=== PATIENT | female | born 1980 | race Caucasian/White ===

== ENCOUNTER 2018-03-07 06:32 | Outpatient (CLI) | payer OTHER, MEDICAID, SELFPAY | END 2018-03-07 07:28 | PROVIDERS: Family Provider Family Medicine; PCP Family Medicine; Visit Provider Family Medicine | DX: Z34.83 Encounter for supervision of other normal pregnancy, third trimester (principal); Z3A.39 39 weeks gestation of pregnancy | CPT/HCPCS: 59025; G0378 ==

== ENCOUNTER 2018-03-08 | Inpatient (IN) | payer OTHER, MEDICAID, SELFPAY | END 2018-03-09 13:30 | disposition home or self-care (01) | DRG 775 | PROVIDERS: Admitting Provider Family Medicine; Family Provider Family Medicine; PCP Family Medicine; Visit Provider Family Medicine | DX: O12.14 Gestational proteinuria, complicating childbirth (principal); N28.9 Disorder of kidney and ureter, unspecified; Z37.0 Single live birth; Z3A.39 39 weeks gestation of pregnancy; O77.0 Labor and delivery complicated by meconium in amniotic fluid | CPT/HCPCS: 36415; 59025; 59050; 80048; 81001; 85014; 85018; 85025; 99058; G0378 ==

== ENCOUNTER 2019-12-20 12:26 | Emergency (ER) | payer OTHER, SELFPAY ==
[2019-12-20 12:46] VITALS: BP 130/86; PULSE 77; RESP 14; TEMP 36.4; O2SAT 100
--- NOTE | 2019-12-20 12:50 | DI.RAD.S_ITS ---
PROCEDURE: XR FINGER RT MIN 2V INDICATIONS: crushed in door TECHNIQUE: AP hand, 2 views of the 3rd finger(s) acquired. COMPARISON: None. FINDINGS: Bones: No fractures or dislocations. No suspicious bony lesions. Soft tissues: No suspicious soft tissue calcifications. IMPRESSION: No displaced fractures are seen on these plain films. If there is focal tenderness, or other clinical concern for a fracture not seen on these images in this patient with a given history of trauma, please consider a dedicated CT or a short-term followup plain film series (in 1-2 weeks) for further evaluation. Dictated by: John Lopez M.D. on 12/20/2019 at 13:17 Approved by: John Lopez M.D. on 12/20/2019 at 13:17
[2019-12-20 14:38] VITALS: PULSE 68
[2019-12-20 14:41] VITALS: BP 123/70; PULSE 68; RESP 18; O2SAT 99
--- NOTE | 2019-12-20 15:04 | ED_ITS ---
HPI - Extremity Injury (Upper) <DONALDO Al - Last Filed: 12/20/19 15:15> General Chief Complaint: Extremity Injury, Upper Stated Complaint: Right hand middle finger laceration Time Seen by Provider: 12/20/19 14:32 Source: patient Mode of arrival: Ambulatory Limitations: no limitations History of Present Illness HPI narrative: This is a 39-year-old female, nonsmoker, who presents after her right distal finger got caught on a garage door and mashed at noon. Patient reports intact sensation and mobility. Patient reports discomfort, laceration, and light bruise on affected finger ulna aspect. Patient states had valdes 22 months ago and she thinks her tetanus vaccination was given at that time. Related Data Home Medications Medication Instructions Recorded Confirmed vit-iron fum-folic ac 1 cap PO QDAY #0 06/07/17 [Mynatal] Previous Rx's Medication Instructions Recorded docusate sodium 250 mg PO QDAY #30 cap 03/09/18 ibuprofen 600 mg PO Q6HP PRN #60 tab 03/09/18 oxycodone-acetaminophen 0 tab PO Q4HP PRN #20 tab 03/09/18 Allergies Allergy/AdvReac Type Severity Reaction Status Date / Time benzoyl peroxide AdvReac Unknown RASH/BUMPS Unverified 02/23/18 12:15 [BENZOYL PEROXIDE] Review of Systems <DONALDO Al - Last Filed: 12/20/19 15:15> Review of Systems Narrative: General: Denies fever, chills, fatigue, malaise, sweats. Respiratory: Denies dyspnea, cough, wheezing, hemoptysis, sputum. Cardiovascular: Denies chest pain, palpitations, orthopnea, edema. Gastrointestinal: Denies nausea, vomiting, abdominal pain, diarrhea, constipation, melena. : Denies dysuria, frequency, incontinence, hematuria, urinary retention. Musculoskeletal: See HPI Skin: See HPI Patient History <DONALDO Al - Last Filed: 12/20/19 15:15> Social History Smoking Status: Never smoker Smoking Status: Never smoker alcohol intake frequency: holidays/special occasions only Substance Use Type: does not use Exam <DONALDO Al - Last Filed: 12/20/19 15:15> Narrative Exam Narrative: General appearance: well developed, well nourished, in no acute distress. Head: normocephalic, atraumatic, no scalp lesions, non-tender. Neck/Thyroid: neck supple, full range of motion, no visible masses or meningeal signs. No JVD, non-tender without lymphadenopathy. Skin: Small superficial laceration on ulna aspect of right 3rd distal phalange as flap shape. no suspicious rashes, lesions over visible areas. Warm and dry and appropriate color for ethnicity. Heart: no clubbing, no cyanosis, no edema. Lungs: Breathing even and unlabored. No stridor. No accessory muscles used. Able to speak in full sentences. Chest: normal shape and expansion. Abdomen: non-obese, non-distended. Neurologic: alert and oriented. Cognitive exam, WEL[employer] GAS and PNS grossly intact on informal exam. Psych: good eye contact, normal affect. Initial Vital Signs Initial Vital Signs: Vital Signs Temperature 97.6 F 12/20/19 12:46 Pulse Rate 77 12/20/19 12:46 Respiratory Rate 14 12/20/19 12:46 Blood Pressure 130/86 12/20/19 12:46 Pulse Oximetry 100 12/20/19 12:46 <Alondra Kaur DO - Last Filed: 12/20/19 18:30> Initial Vital Signs Initial Vital Signs: Vital Signs Temperature 97.6 F 12/20/19 12:46 Pulse Rate 77 12/20/19 12:46 Respiratory Rate 14 12/20/19 12:46 Blood Pressure 130/86 12/20/19 12:46 Pulse Oximetry 100 12/20/19 12:46 Procedures <KULWINDER AlP - Last Filed: 12/20/19 15:15> Laceration Repair Laceration 1: Site: upper extremity (3rd distal finger) Side (If applicable): right Description: flap Skin layer closed with: steri-strips Scores <KULWINDER AlP - Last Filed: 12/20/19 15:15> GCS [place] coma scale eye opening: Spontaneous [place] coma scale verbal response: Orientated [place] coma scale motor response: Obey commands [place] coma scale total score: 15 Course <DONALDO Al - Last Filed: 12/20/19 15:15> Orders Ordered: ED Orders 12/20/19 12:50 XR finger RT min 2V Stat Discontinued Medications Bacitracin (Bacitracin) 1 applic TOP NOW ONE Stop: 12/20/19 15:11 Last Admin: 12/20/19 15:19 Dose: 1 applic Documented by: HINA Vital Signs Vital signs: Vital Signs - 8 hr 12/20/19 12:46 12/20/19 14:38 12/20/19 14:41 Temperature 97.6 F Pulse Rate 77 68 Pulse Rate [Right Radial] 68 Respiratory Rate 14 18 Blood Pressure 130/86 Blood Pressure [Left Arm] 123/70 Pulse Oximetry 100 99 12/20/19 15:28 Temperature Pulse Rate 70 Pulse Rate [Right Radial] Respiratory Rate 16 Blood Pressure 122/72 Blood Pressure [Left Arm] Pulse Oximetry 96 <Alondra Kaur DO - Last Filed: 12/20/19 18:30> Orders Ordered: ED Orders 12/20/19 12:50 XR finger RT min 2V Stat Discontinued Medications Bacitracin (Bacitracin) 1 applic TOP NOW ONE Stop: 12/20/19 15:11 Last Admin: 12/20/19 15:19 Dose: 1 applic Documented by: HINA Vital Signs Vital signs: Vital Signs - 8 hr 12/20/19 12:46 12/20/19 14:38 12/20/19 14:41 Temperature 97.6 F Pulse Rate 77 68 Pulse Rate [Right Radial] 68 Respiratory Rate 14 18 Blood Pressure 130/86 Blood Pressure [Left Arm] 123/70 Pulse Oximetry 100 99 12/20/19 15:28 Temperature Pulse Rate 70 Pulse Rate [Right Radial] Respiratory Rate 16 Blood Pressure 122/72 Blood Pressure [Left Arm] Pulse Oximetry 96 MDM - Extremity Injury (Upper) <DONALDO Al - Last Filed: 12/20/19 15:15> Differential Diagnosis Differential diagnosis: Likely finger sprain and other (finger fracture, laceration) Medical Records Attestation: I reviewed the patient's medical records. Imaging Data XR-Finger RT: Radiologist's Impression: [address] [address] XRay Report Signed Patient: Yessy Gray LMR#: [id number] : 1980Acct:[id number] Age/Sex: 39 / FDate of Service: 12/20/19 Loc: ED Accession Number: [id number] Procedure: XR finger RT min 2V Ordering Provider: Alondra Kaur D.O. PROCEDURE: XR FINGER RT MIN 2V INDICATIONS: crushed in door TECHNIQUE: AP hand, 2 views of the 3rd finger(s) acquired. COMPARISON: None. FINDINGS: Bones: No fractures or dislocations. No suspicious bony lesions. Soft tissues: No suspicious soft tissue calcifications. IMPRESSION: No displaced fractures are seen on these plain films. If there is focal tenderness, or other clinical concern for a fracture not seen on these images in this patient with a given history of trauma, please consider a dedicated CT or a short-term followup plain film series (in 1-2 weeks) for further evaluation. Dictated by: John Lopez M.D. on 12/20/2019 at 13:17 Approved by: John Lopez M.D. on 12/20/2019 at 13:17 [facility] Narrative Medical decision making narrative: X-ray test on right 3rd finger was negative for fracture or dislocation. Tetanus updated during last last and 2 years ago. Laceration on ulna aspect of right 3rd distal phalange is a flap shape and superficial. Wound was cleaned and repaired with Steri-Strips. Please see procedural note. Wound care instruction provided for home care. Return precautions were discussed including signs and symptoms for infection. Patient advised to ice, [id number] Tylenol and or Motrin as needed for discomfort. Patient verbalized understanding and agrees with the treatment plan. Discharge Plan Departure Patient Disposition: Home Clinical Impression: Contusion of finger, right Qualifiers: Encounter type: initial encounter Finger: middle finger Damage to nail status: without damage Qualified Code(s): S60.031A - Contusion of right middle finger without damage to nail, initial encounter Laceration of finger of left hand Qualifiers: Encounter type: initial encounter Finger: middle finger Damage to nail status: without damage Foreign body presence: without foreign body Qualified Code(s): S61.213A - Laceration without foreign body of left middle finger without damage to nail, initial encounter Discharge Date/Time: 12/20/19 15:29 Instructions: DI for Laceration Repair Steri-Strips, DI for Contusion Activity Restrictions/Additional Instructions: You have been diagnosed with [right 3rd distal finger contusion and laceration. No fractures or dislocations according to today's x-ray test. The superficial laceration was repaired by Steri-Strips.]. What to do: *Take your medications as directed. You can take Tylenol and or Motrin as needed for discomfort. You can use very small amount of antibiotic ointment on affected laceration. Keep the wound clean, dry and avoid soaking in the water until it heals. You can use ice pack as well for discomfort and inflammation. *Follow up with your primary care provider in 2-3 days, call for an appointment. Let them know you were seen in the ED and that we asked you to be seen in follow up. *Return to ED if you have any new, worsening, or concerning symptoms, such as [signs and symptoms for infection such as redness/swelling/pain increasing, purulent discharge, chest pain, breathing difficulty, unable to tolerate fluids or any acute concerns,]. Prescriptions: No Action vit-iron fum-folic ac [Mynatal] 1 EACH capsule 1 cap PO QDAY Qty: 0 RF: 0 docusate sodium 250 MG capsule 250 mg PO QDAY Qty: 30 RF: 1 oxycodone-acetaminophen 5 MG/325 MG tablet 0 tab PO Q4HP PRNQty: 20 RF: 0 ibuprofen 600 MG tablet 600 mg PO Q6HP PRNQty: 60 RF: 1 Referrals: Indu Bernardo MD [Primary Care Provider] -
[2019-12-20] MEDS: BACITRACIN OINT 0.9 GM PCKT 1 APPLIC TOP (15:19)
[2019-12-20 15:28] VITALS: BP 122/72; PULSE 70; RESP 16; O2SAT 96
== END 2019-12-20 15:29 | disposition home or self-care (01) ==
PROVIDERS: Emergency Provider Nurse Practitioner Family; Family Provider Family Medicine; PCP Family Medicine
DX: S60.031A Contusion of right middle finger without damage to nail, initial encounter (principal); S61.213A Laceration without foreign body of left middle finger without damage to nail, initial encounter; W22.8XXA Striking against or struck by other objects, initial encounter
CPT/HCPCS: 73140; 99283

== ENCOUNTER → 2021-06-06 14:41 | Outpatient (CLI) | payer OTHER, SELFPAY ==
--- NOTE | 2021-06-06 14:45 | DI.MG.S_ITS ---
BILATERAL DIGITAL SCREENING MAMMOGRAM 3D/2D WITH CAD: 06/06/2021 CLINICAL: Routine screening. Baseline exam. No prior exams were available for comparison. The tissue of both breasts is heterogeneously dense. This may lower the sensitivity of mammography. Current study was also evaluated with a Computer Aided Detection (CAD) system. There are grouped fine punctate calcifications in the right breast at 11 o'clock posterior depth. There are grouped fine punctate calcifications in the left breast at 1 o'clock middle depth. No other significant masses or calcifications are seen in either breast. IMPRESSION: INCOMPLETE: NEEDS ADDITIONAL IMAGING EVALUATION The grouped fine punctate calcifications in the right breast at 11 o'clock posterior depth are indeterminate. The grouped fine punctate calcifications in the left breast at 1 o'clock middle depth are indeterminate. Diagnostic mammogram for additional views to include mediolateral and spot magnification views is recommended. This exam was interpreted at Station ID: [id number]. NOTE: For mammograms, a report in lay terms will be sent to the patient. Approximately 15% of breast malignancies will not be visualized mammographically. In the management of a palpable breast mass, a negative mammogram must not discourage biopsy of a clinically suspicious lesion. Electronically Signed By: Bob Heredia M.D. aty/:06/06/2021 16:43:55 letter sent: Additional Imaging Needed ACR BI-RADS Category 0: Incomplete 3340F
== END ==
PROVIDERS: Family Provider Family Medicine; PCP Family Medicine; Referring Provider Family Medicine; Visit Provider Family Medicine
DX: Z12.31 Encounter for screening mammogram for malignant neoplasm of breast (principal); R92.1 Mammographic calcification found on diagnostic imaging of breast
CPT/HCPCS: 77063; 77067

== ENCOUNTER → 2021-07-31 15:28 | Outpatient (CLI) | payer OTHER, SELFPAY ==
--- NOTE | 2021-07-31 15:30 | DI.MRI.S_ITS ---
PROCEDURE: MR ABDOMEN WO/W CON INDICATIONS: BENIGN SCHWANNOMA TECHNIQUE: Coronal HASTE, axial 2D FLASH in- and [id number]; axial breath-hold T2 FSE. Dynamic axial VIBE during the administration of contrast; post-contrast coronal VIBE or 2D FLASH with fat saturation from the hepatic dome to the iliac crests. Optional diffusion weighted imaging and ADC may be performed. COMPARISON: [facility], MR, ABDOMEN W&WO CONTRAST, 05/21/2017, 15:03. FINDINGS: Image quality: Excellent. Lung bases: No basal pleural effusions. Heart size is normal. Solid organs: Liver is normal in size and enhancement. Gallbladder appears decompressed. Biliary system is non dilated. Pancreas is normal in morphology. Spleen is normal in size and enhancement. No adrenal nodules. Both kidneys demonstrate normal size and enhancement, without hydronephrosis. Nodes and vessels: No retroperitoneal or mesenteric adenopathy by size criteria. Susceptibility artifact to the right of the inferior IVC at the site of prior mass. There is no recurrent mass. No suspicious enhancement. No restricted diffusion. Aorta and inferior vena cava are normal in size. Bowel and peritoneum: Unenhanced bowel loops are normal in caliber. No free fluid. Bones and soft tissues: No ventral hernias. Ventral abdominal wall scar. Bone marrow is normal in overall signal. IMPRESSION: No recurrent mass to the right of the lower IVC at the site of previous mass. No suspicious enhancement or restricted diffusion. Dictated by: Sam Mercado M.D. on 07/31/2021 at 16:59 Approved by: Sam Mercado M.D. on 07/31/2021 at 17:08
== END ==
PROVIDERS: Family Provider Family Medicine; PCP Family Medicine; Referring Provider Surgery Surgical Oncology; Visit Provider Surgery Surgical Oncology
DX: D36.10 Benign neoplasm of peripheral nerves and autonomic nervous system, unspecified (principal)
CPT/HCPCS: 74183; A9579

== ENCOUNTER 2022-04-06 09:33 | Emergency (ER) | payer OTHER, SELFPAY ==
[2022-04-06 09:52] VITALS: BP 113/76; PULSE 92; RESP 18; TEMP 36.7; O2SAT 98; BMI 27.4
--- NOTE | 2022-04-06 09:56 | DI.RAD.S_ITS ---
PROCEDURE: XR CHEST 2V INDICATIONS: cough for 2 weeks TECHNIQUE: 2 views of the chest were acquired. COMPARISON: None. FINDINGS: Surgical changes and devices: None. Lungs and pleura: Lungs are clear. No pleural effusions or pneumothorax. Mediastinum: Mediastinal contours are normal. Heart size is normal. Bones and chest wall: No suspicious bony abnormalities. Soft tissues appear unremarkable. IMPRESSION: No focal infiltrates are seen. Dictated by: John Lopez M.D. on 04/06/2022 at 9:28 Approved by: John Lopez M.D. on 04/06/2022 at 9:28
[2022-04-06 11:56] LABS: COVID19 -Nasal RAPID Negative (Negative)
--- NOTE | 2022-04-06 13:09 | ED_ITS ---
HPI - URI/Sore Throat <Nicki Will PA-C - Last Filed: 04/06/22 13:15> General Chief Complaint: Upper Respiratory Symptoms Stated Complaint: chest congestion 2 weeks *tight chest/ears today Time Seen by Provider: 04/06/22 12:58 Source: patient Mode of arrival: Ambulatory History of Present Illness HPI Narrative: 41-year-old female with no reported past medical history presents to the ED with 3 weeks of cough, fatigue, chills. Patient denies fever, chest pain, shortness of breath, nausea, vomiting, abdominal pain, diarrhea, constipation, dysuria. Patient's tested positive for COVID 3 days ago. Patient has taken several COVID-19 home tests over the last 3 weeks, which were all negative. Related Data Home Medications Medication Instructions Recorded Confirmed vitamin-ferrous fumarate 1 cap PO QDAY #0 06/07/17 65 mg iron-folic acid 1 mg capsule (Mynatal) Previous Rx's Medication Instructions Recorded docusate sodium 250 mg capsule 250 mg PO QDAY #30 cap 03/09/18 ibuprofen 600 mg tablet 600 mg PO Q6HP PRN #60 tab 03/09/18 oxycodone-acetaminophen 5 mg-325 0 tab PO Q4HP PRN #20 tab 03/09/18 mg tablet Allergies Allergy/AdvReac Type Severity Reaction Status Date / Time benzoyl peroxide AdvReac Unknown RASH/BUMPS Unverified 02/23/18 12:15 [BENZOYL PEROXIDE] Review of Systems <Nicki Will PA-C - Last Filed: 04/06/22 13:15> Review of Systems ROS Unobtainable: All systems reviewed & are unremarkable except as noted in HPI and below Constitutional Constitutional: Reports chills, Reports fatigue, Denies fever(s), Denies frequent falls, Denies lethargy and Denies weakness Eyes Eyes: Denies change in vision, Denies eye discharge, Denies irritation and Denies loss of vision ENT Ears, Nose, Mouth, and Throat: Denies change in voice, Denies dizziness, Reports otalgia, Denies neck pain, Denies sore throat and Denies throat swelling Cardiovascular Cardiovascular: Denies chest pain, Denies irregular heart rhythm, Denies li ghtheadedness, Denies palpitations, Denies dyspnea, Denies dyspnea on exertion and Denies orthopnea Respiratory Respiratory: Reports cough, Denies dyspnea, Denies dyspnea on exertion and Denies wheezing Gastrointestinal Gastrointestinal: Denies abdominal pain, Denies change in bowel habits, Denies diarrhea, Denies nausea and Denies vomiting Genitourinary Genitourinary: Denies hematuria, Denies flank pain, Denies urinary incontinence and Denies urinary urgency Musculoskeletal Musculoskeletal: Denies back pain, Denies muscle weakness, Denies neck pain, Denies numbness and Denies tingling Integumentary/Breasts Skin/Breast: Denies pruritus, Denies erythema, Denies rash and Denies wounds Neurologic Neurologic: Denies behavioral changes, Denies confusion, Denies dizziness, Denies frequent falls, Denies loss of vision, Denies numbness, Denies tingling and Denies weakness Psychiatric Psychiatric: Denies anxiety, Denies behavioral changes, Denies confusion, Denies depression, Denies homicidal ideation and Denies suicidal ideation Endocrine Endocrine: Reports fatigue, Denies flushing and Denies palpitations Hematologic/Lymphatic Hematologic/Lymphatic: Denies easy bruising Allergic/Immunologic Allergic/Immunologic: Denies urticaria, Denies throat swelling and Denies wheezing Patient History <Nicki Will PA-C - Last Filed: 04/06/22 13:15> Social History Smoking Status: Never smoker Smoking Status: Never smoker alcohol intake frequency: holidays/special occasions only Substance Use Type: does not use Exam <Nicki Will PA-C - Last Filed: 04/06/22 13:15> Narrative Exam Narrative: Const General:?cooperative, healthy appearing and comfortable [facility] Head:?normal to inspection Ears:?hearing grossly normal bilaterally Nose:?external nose normal Face and sinus:?normal facial exam and sinuses nontender Mouth:?oral mucosae normal Throat:?posterior oropharynx normal Eyes General:?appearance normal, both eyes and all related structures Neck Neck:?normal visual inspection and no lymphadenopathy noted Resp Effort & Inspection:?normal respiratory effort Auscultation:?clear to auscultation bilaterally Cardio Rate:?regular rate Rhythm:?regular rhythm Neuro General:?patient alert, patient awake and patient oriented x3 Initial Vital Signs Initial Vital Signs: Vital Signs Temperature 98.0 F 04/06/22 09:52 Pulse Rate 92 H 04/06/22 09:52 Respiratory Rate 18 04/06/22 09:52 Blood Pressure 113/76 04/06/22 09:52 Pulse Oximetry 98 04/06/22 09:52 <Alexandra Singh MD - Last Filed: 04/07/22 07:23> Initial Vital Signs Initial Vital Signs: Vital Signs Temperature 98.0 F 04/06/22 09:52 Pulse Rate 92 H 04/06/22 09:52 Respiratory Rate 18 04/06/22 09:52 Blood Pressure 113/76 04/06/22 09:52 Pulse Oximetry 98 04/06/22 09:52 Course <Nicki Will PA-C - Last Filed: 04/06/22 13:15> Orders Ordered: ED Orders 04/06/22 09:56 XR chest 2V Stat 04/06/22 11:24 COVID19 -Nasal RAPID/Pre-Proc Stat Vital Signs Vital signs: Vital Signs - 8 hr 04/06/22 09:52 Temperature 98.0 F Pulse Rate 92 H Respiratory Rate 18 Blood Pressure 113/76 Pulse Oximetry 98 <Alexandra Singh MD - Last Filed: 04/07/22 07:23> Orders Ordered: ED Orders 04/06/22 09:56 XR chest 2V Stat 04/06/22 11:24 COVID19 -Nasal RAPID/Pre-Proc Stat Vital Signs Vital signs: Vital Signs - 8 hr 04/06/22 09:52 Temperature 98.0 F Pulse Rate 92 H Respiratory Rate 18 Blood Pressure 113/76 Pulse Oximetry 98 MDM - URI/Sore Throat <Nicki Will PA-C - Last Filed: 04/06/22 13:15> Lab Data Attestation: I reviewed the patient's lab results. Lab results narrative: COVID 19 negative Labs: Lab Results 04/06/22 Range/Units 11:24 SARS-CoV-2 (PCR) Negative (Negative) Imaging Data Chest x-ray: Radiologist's Impression: PROCEDURE:? XR CHEST 2V ? INDICATIONS:? cough for 2 weeks ? TECHNIQUE:? 2 views of the chest were acquired.? ? COMPARISON:? None. ? FINDINGS:? ? Surgical changes and devices:? None.? ? Lungs and pleura:? Lungs are clear.? No pleural effusions or pneumothorax.? ? Mediastinum:? Mediastinal contours are normal.? Heart size is normal.? ? Bones and chest wall:? No suspicious bony abnormalities.? Soft tissues appear unremarkable.? IMPRESSION:? No focal infiltrates are seen. ? ? Dictated by: John Lopez M.D. on 04/06/2022 at 9:28 ? ? Approved by: John Lopez M.D. on 04/06/2022 at 9:28 ? MDM Narrative Medical decision making narrative: 41-year-old female with no reported past medical history presents to the ED with 3 weeks of cough, fatigue, chills. Concern for COVID-19 infection versus pneumonia versus other viral syndrome. Patient's COVID-19 test was negative in the ED. Chest x-ray without any acute findings. Patient's symptoms are likely due to an upper respiratory infection, given no signs of bacterial infection such as strep pharyngitis, pneumonia, otitis media, bacterial sinusitis. Discharge patient home with supportive care, ED return precautions. Patient verbalized understanding. <Alexandra Singh MD - Last Filed: 04/07/22 07:23> Lab Data Labs: Lab Results 04/06/22 Range/Units 11:24 SARS-CoV-2 (PCR) Negative (Negative) Discharge Plan Departure Patient Disposition: Home Clinical Impression: Upper respiratory infection Instructions: DI for Viral Upper Respiratory Infection -- Adult Activity Restrictions/Additional Instructions: You were evaluated in the ED today for an upper respiratory infection. Your COVID test was negative and chest x-ray was normal. Your symptoms are likely due to a viral upper respiratory infection. You may take Tylenol, ibuprofen, Flonase, [id number] cough medications for your symptoms. Return to the ED if you experience any chest pain or shortness of breath. Prescriptions: No Action vit-iron fum-folic ac [Mynatal] 1 EACH capsule 1 cap PO QDAY Qty: 0 0RF docusate sodium 250 MG capsule 250 mg PO QDAY Qty: 30 1RF oxycodone-acetaminophen 5 MG/325 MG tablet 0 tab PO Q4HP PRNQty: 20 0RF ibuprofen 600 MG tablet 600 mg PO Q6HP PRNQty: 60 1RF Referrals: Indu Bernardo MD [Primary Care Provider] - <Alexandra Singh MD - Last Filed: 04/07/22 07:23> Cosign ED Attending Cosignature Attestation: I was immediately available in the department for consultation throughout this patient's visit. I agree with documentation as above. Alexandra Singh MD
[2022-04-06 13:17] VITALS: BP 111/62; PULSE 96; RESP 20; O2SAT 100
== END 2022-04-06 13:18 | disposition home or self-care (01) ==
PROVIDERS: Emergency Medicine; Emergency Provider Student in an Organized Health Care Education/Training Program; Family Provider Family Medicine; PCP Family Medicine
DX: J06.9 Acute upper respiratory infection, unspecified (principal); Z20.822 Contact with and (suspected) exposure to COVID-19
CPT/HCPCS: 71046; 87635; 99281; 99283; C9803

== ENCOUNTER → 2022-09-24 09:25 | Outpatient (CLI) | payer OTHER, SELFPAY ==
--- NOTE | 2022-09-24 09:27 | DI.MG.S_ITS ---
BILATERAL DIGITAL DIAGNOSTIC MAMMOGRAM 3D/2D SHORT-TERM FOLLOW-UP: 09/24/2022 CLINICAL: Short term follow up for bilateral breasts. Comparison is made to exam dated: 06/06/2021 mammogram - [facility]. Both breasts are heterogeneously dense, which may obscure small masses (category c / 51-75% glandular tissue). There are diffuse fine punctate calcifications in the right breast at 11 o'clock posterior depth. There are grouped fine punctate calcifications in the left breast at 1 o'clock middle depth. There may be an underlying oval partially obscured, low density asymmetry measuring 1.0 cm seen best on MLO susan and magnification views. No other significant masses or calcifications are seen in either breast. IMPRESSION: INCOMPLETE: NEEDS ADDITIONAL IMAGING EVALUATION The diffuse fine punctate calcifications in the right breast at 11 o'clock posterior depth are probably benign. Follow up mammogram in 6 months is recommended. The grouped fine punctate calcifications in the left breast at 1 o'clock middle depth are possibly associated with an underlying low density asymmetry. An ultrasound is recommended. This could not be accommodated today, and should be scheduled to be performed as soon as possible. Findings and recommendations were conveyed to the patient at time of exam. Based on the Tyrer Cuzick model (a risk assessment model) the patient's lifetime risk is 14.9% and her 10 year risk is 2.4%. According to the ACR, ACS, and NCCN guidelines, an annual breast MRI exam along with mammogram is recommended if the patient's lifetime risk is 20% or greater. This exam was interpreted at Station ID: [id number]. NOTE: For mammograms, a report in lay terms will be sent to the patient. Approximately 15% of breast malignancies will not be visualized mammographically. In the management of a palpable breast mass, a negative mammogram must not discourage biopsy of a clinically suspicious lesion. Electronically Signed By: Yaneli winslow/:09/24/2022 12:03:09 letter sent: Additional Imaging Needed ACR BI-RADS Category 0: Incomplete 3340F
--- NOTE | 2022-10-26 | DI.US.S_ITS ---
LIMITED ULTRASOUND OF LEFT BREAST: 10/26/2022 CLINICAL: Patient returns today to evaluate an asymmetry in the left breast. Comparison is made to exams dated: 09/24/2022 mammogram, 06/06/2021 mammogram, and 02/22/2012 [facility]. Real-time ultrasound of the left breast 1 o'clock region was performed. Weldon scale images of the real-time examination were reviewed. No significant abnormalities were seen sonographically in the left breast in the region of possible asymmetry. IMPRESSION: PROBABLY BENIGN No sonographic evidence of malignancy. A follow-up mammogram in 6 months is recommended to demonstrate stability of the previously seen calcifications. 03/24/2023 Exam findings were conveyed to the patient. This exam was interpreted at Station ID: [id number]. Electronically Signed By: Sam Mercado M.D. slc/:10/26/2022 13:17:26 letter sent: Followup Recommended Ultrasound BI-RADS: 3 Probably benign
== END ==
PROVIDERS: Family Provider Family Medicine; PCP Family Medicine; Referring Provider Family Medicine; Visit Provider Family Medicine
DX: R92.8 Other abnormal and inconclusive findings on diagnostic imaging of breast (principal); R92.1 Mammographic calcification found on diagnostic imaging of breast
CPT/HCPCS: 77066; G0279

== ENCOUNTER → 2022-10-26 12:41 | Outpatient (CLI) | payer OTHER, SELFPAY | PROVIDERS: Family Provider Family Medicine; PCP Family Medicine; Referring Provider Family Medicine; Visit Provider Family Medicine | DX: R92.8 Other abnormal and inconclusive findings on diagnostic imaging of breast (principal) | CPT/HCPCS: 76642 ==

== ENCOUNTER → 2023-06-19 08:17 | Outpatient (CLI) | payer OTHER, SELFPAY ==
[2023-06-19 09:20] LABS: Add Manual Diff / Slide Review NO; Basophils Absolute Auto 0 /uL (0-100); Eosinophils Absolute Auto 200 /uL (0-450); Eosinophils Percent Auto 3.3 % (2-4); Hematocrit 37.6 % (36-46); Hemoglobin 12.9 g/dL (12.0-16.0); Lymphocytes Absolute Auto 1500 /uL (1100-4500); Lymphocytes Percent Auto 31.3 % (25-40); Mean Corpuscular HGB Conc 34.4 % (30-36); Mean Corpuscular Hemoglobin 30.6 PG (26-34); Monocytes Absolute Auto 300 /uL (0-900); Monocytes Percent Auto 6.8 % (3-14); Neutrophils Absolute Auto 2700 /uL (1500-7000); Neutrophils Percent Auto 57.6 % (50-75); Platelet Count 258 X10^3/uL (150-400); Red Blood Cell Count 4.22 X10^6/uL (4.0-5.2); Red Cell Distribution Width 12.2 % (11.6-14.8); White Blood Cell Count 4.7 X10^3/uL (4.5-11.0)
[2023-06-19 09:42] LABS: Alanine Aminotransferase 21 IU/L (<35); Albumin 4.1 g/dL (3.5-5.0); Albumin Globulin Ratio 1.5 (1.0-2.8); Alkaline Phosphatase 54 U/L (38-126); Aspartate Aminotransferase 23 IU/L (14-36); BUN Creatinine Ratio 15.2 (6-22); Bilirubin Total 0.6 mg/dL (0.2-1.3); Blood Urea Nitrogen 10 mg/dL (7-17); Calcium 9.3 mg/dL (8.4-10.2); Carbon Dioxide 26 mmol/L (22-32); Chloride 103 mmol/L (98-107); Cholesterol 192 mg/dL (140-199); Estimated Glomerular Filt Rate > 60 mL/min (>60); Globulin 2.8 g/dL (1.7-4.1); Glucose 91 mg/dL (70-100); HDL Cholesterol 68 mg/dL (40-60); HEMOLYSIS < 15 (0-50); LDL Cholesterol Calculated 112 mg/dL (<100); Potassium 4.4 mmol/L (3.4-5.1); Sodium 136 mmol/L (137-145); Total Protein 6.9 g/dL (6.3-8.2); Triglycerides 61 mg/dL (35-150)
[2023-06-19 09:58] LABS: Free T3, Triiodothyronine Free 3.34 pg/mL (2.77-5.27); Free T4, Direct Thyroxine 0.92 ng/dL (0.78-2.19)
[2023-06-19 10:11] LABS: Thyroid Stimulating Hormone 1.09 uIU/mL (0.47-4.68)
[2023-06-19 10:15] LABS: Ferritin 17 ng/mL (6-137)
[2023-06-20 07:11] LABS: Thyroid Peroxidase Antibodies 10 IU/mL (0-34)
[2023-06-22 06:09] LABS: Insulin Level Total 4.8 uIU/mL (2.6-24.9)
== END ==
PROVIDERS: Family Provider Family Medicine; PCP Family Medicine; Referring Provider Naturopath; Visit Provider Naturopath
DX: Z00.00 Encounter for general adult medical examination without abnormal findings (principal); E16.2 Hypoglycemia, unspecified; R53.83 Other fatigue
CPT/HCPCS: 36415; 80053; 80061; 82728; 83525; 84439; 84443; 84481; 85025; 86376

== ENCOUNTER → 2023-08-19 15:20 | Outpatient (CLI) | payer OTHER, MEDICAID, SELFPAY ==
--- NOTE | 2023-08-19 | DI.US.S_ITS ---
PROCEDURE: US OB <= 14 WEEKS FETUS INDICATIONS: POSITIVE OUTSIDE/PRIOR DATING DATA: Last menstrual period (LMP): 06/27/2023 LMP-based estimated date of delivery (CATRACHITO): 04/02/2024. First dating scan (date and location): 08/19/2023. Estimated date of delivery (CATRACHITO) from first dating scan: 04/04/2024. TECHNIQUE: Real-time scanning was performed of the fetus and maternal pelvic organs, with image documentation. Endovaginal scanning was also performed to better visualize the fetus and maternal ovaries. COMPARISON: None. FINDINGS: Embryo: [place]-rump length measures 1.1 cm corresponding to 7 weeks 2 days. Heart rate: 145 Maternal organs: Ovaries within normal limits. IMPRESSION: 7 week 2 day single living IUP corresponding to ultrasound CATRACHITO of 04/04/2024. We strive to produce accurate, complete, and clear reports of imaging services. To assist us in improving patient care, this report was composed using standard report templates and voice recognition software. Therefore, it may contain abnormal punctuation, insertions and/or omissions. Occasional wrong-word or sound-alike substitutions may occur. Though we review the report and make efforts to correct it, we do recommend that the report be read carefully in proper context to recognize any text inaccuracies. Dictated by: Edison GODFREY Interpreted: Nazario De Jesus MD on 08/19/2023 at 16:10 Transcribed by: JEB on 08/19/2023 at 16:17 Approved by: Nazario De Jesus M.D. on 09/20/2023 at 7:54
== END ==
PROVIDERS: Family Provider Family Medicine; PCP Family Medicine; Referring Provider Family Medicine; Visit Provider Family Medicine
DX: N91.2 Amenorrhea, unspecified (principal); Z32.01 Encounter for pregnancy test, result positive; Z3A.01 Less than 8 weeks gestation of pregnancy
CPT/HCPCS: 76801; 76817

== ENCOUNTER → 2023-09-13 13:40 | Outpatient (CLI) | payer OTHER, MEDICAID, SELFPAY ==
[2023-09-13 14:29] LABS: Add Manual Diff / Slide Review NO; Basophils Absolute Auto 0 /uL (0-100); Basophils Percent Auto 0.5 % (0-2); Eosinophils Absolute Auto 100 /uL (0-450); Hemoglobin 12.4 g/dL (12.0-16.0); Lymphocytes Absolute Auto 1300 /uL (1100-4500); Mean Corpuscular HGB Conc 34.5 % (30-36); Mean Corpuscular Hemoglobin 30.8 PG (26-34); Mean Corpuscular Volume 89.4 fL (80-100); Monocytes Absolute Auto 400 /uL (0-900); Monocytes Percent Auto 5.1 % (3-14); Neutrophils Absolute Auto 6300 /uL (1500-7000); Neutrophils Percent Auto 77.4 % (50-75); Platelet Count 277 X10^3/uL (150-400); Red Blood Cell Count 4.03 X10^6/uL (4.0-5.2); Red Cell Distribution Width 12.7 % (11.6-14.8); White Blood Cell Count 8.1 X10^3/uL (4.5-11.0)
[2023-09-13 15:23] LABS: Appearance Urine UA CLEAR; Bilirubin Urine UA NEGATIVE (NEGATIVE); Color Urine UA YELLOW; Glucose Urine UA NEGATIVE (Negative); Ketones Urine UA NEGATIVE (NEGATIVE); Leukocyte Esterase Urine UA NEGATIVE (NEGATIVE); Nitrite Urine UA NEGATIVE (Negative); Occult Blood Urine UA NEGATIVE (Negative); Protein Urine UA NEGATIVE (Negative); Specific Gravity Urine UA <=1.005 (1.000-1.035); Urobilinogen Urine UA 0.2 E.U./dL (0.2)
[2023-09-13 15:25] LABS: pH Urine UA 6.5 (4.5-8.0)
[2023-09-13 17:13] LABS: Hepatitis B Surface Antigen NEGATIVE s/c (NEGATIVE); Rubella Antibody IgG 44.3 IU/mL (>15)
[2023-09-13 17:26] LABS: Hep C Virus Ab w/Reflex Quant NEGATIVE s/c (NEGATIVE)
[2023-09-13 17:27] LABS: HIV 1 & 2 Ab/Ag 4th Gen Combo NEGATIVE (NEGATIVE)
[2023-09-14 06:18] LABS: RPR Screen Non Reactive (Non Reactive)
[2023-09-14 11:29] LABS: Varicella IgG Antibody 1569 index (Immune >165)
== END ==
PROVIDERS: Family Provider Family Medicine; PCP Family Medicine; Referring Provider Family Medicine; Visit Provider Family Medicine
DX: O09.521 Supervision of elderly multigravida, first trimester (principal); Z34.80 Encounter for supervision of other normal pregnancy, unspecified trimester
CPT/HCPCS: 36415; 80055; 81003; 86787; 86803; 86850; 86900; 86901; 87086; 87389

== ENCOUNTER → 2023-11-16 10:18 | Outpatient (CLI) | payer OTHER, MEDICAID, SELFPAY ==
--- NOTE | 2023-11-16 10:18 | DI.US.S_ITS ---
PROCEDURE: US OB >= 14 WEEKS FETUS INDICATIONS: anatomy scan OUTSIDE/PRIOR DATING DATA: Last menstrual period (LMP): 06/27/2023 LMP-based estimated date of delivery (CATRACHITO): 04/02/2024 First dating scan (date and location): 08/19/2023 Estimated date of delivery (CATRACHITO) from first dating scan: 04/04/2024 The calculations are made using the clinical CATRACHITO of 04/02/2024 TECHNIQUE: Real-time scanning was performed of the fetus, with image documentation and biometric measurements. Endovaginal scanning: Not performed COMPARISON: [facility], OB <= 14 WEEKS FETUS, 08/19/2023, 15:36. FINDINGS: General: A single living intrauterine gestation is present. Presentation: Vertex Placenta: Placental position is posterior, without previa. Amniotic fluid index: 10.3 cm, normal range is 5-24 cm. Single deepest vertical pocket is 3.1 cm. heart rate: 140 beats per minute. Maternal cervical canal: 4.7 cm long. Normal lower limit is 2.5 cm. biometrics: Biparietal diameter: 4.3 cm, 18 weeks 6 days Head circumference: 17.0 cm, 19 weeks 4 days Abdominal circumference: 14.8 cm, 20 weeks 0 days Femur length: 3.1 cm, 19 weeks 5 days Clinically estimated gestational age: 20 weeks 2 days Composite gestational age from present scan: 19 weeks 4 days Estimated weight and percentile: 314 grams, 21st percentile Anatomic survey: Neuro: Ventricles are non-dilated at less than 10 mm. Cisterna magna is normal at 3-11 mm. Cerebellum is normal in size and morphology. Nuchal skin fold: Normal at less than 6 mm between 14-21 weeks gestational age. Face: Nose and lips, facial profile are normal. Spine: No evidence for spina bifida. Heart: 4-chambered heart is present, with normal ventricular outflow tracts. Diaphragm: Diaphragm is intact. Stomach: Left-sided stomach is present. Kidneys: No hydronephrosis. Normal is less than 5 mm in 2nd trimester, less than 7 mm in 3rd trimester. Cord: 3-vessel cord has orthotopic insertion. Bladder: Normal in size. Extremities: All 4 extremities identified. IMPRESSION: 1. Single live intrauterine with appropriate interval growth. 2. anatomic survey is within normal limits. Approved by: Juice Ortiz M.D. on 11/16/2023 at 15:05
== END ==
PROVIDERS: Family Provider Family Medicine; PCP Family Medicine; Referring Provider Family Medicine; Visit Provider Family Medicine
DX: Z34.82 Encounter for supervision of other normal pregnancy, second trimester (principal); Z3A.19 19 weeks gestation of pregnancy
CPT/HCPCS: 76811

== ENCOUNTER 2023-11-21 19:18 | Outpatient (CLI) | payer OTHER, MEDICAID, SELFPAY ==
--- NOTE | 2023-11-21 19:57 | P.CONS_ITS ---
History of Present Illness Consult details Date Patient Seen: 11/21/23 Time Patient Seen: 19:57 Chief complaint: [place] K[place] pain Reason for consult: Twenty weeks gestational age with abdominal pain. Narrative: Patient states she has had periumbilical cramping pain which occurred twice today. She denies these being cramping in nature. She states these are intermittent with exacerbations. 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 Meds Home Medications and Allergies Home Medications Medication Instructions Recorded Confirmed Type L.acidop,casei,lactis,rham-B.lact,mega cap PO 08/23/23 11/01/23 History 625 mg (10 billion cell) capsule (Advanced Probiotic) vitamin-ferrous sulfate tab PO 08/23/23 11/01/23 History 27 mg iron-folic acid 0.8 mg tablet Allergies Allergy/AdvReac Type Severity Reaction Status Date / Time benzoyl peroxide AdvReac Unknown RASH/BUMPS Unverified 11/01/23 10:59 [BENZOYL PEROXIDE] Exam Const General: healthy appearing and comfortable GI Inspection: incision (Patient has incision above the umbilicus in skirts around the right side of) Palpation: soft and tender (She has minimal tenderness at the incision. There is no tenderness at the ) Auscultation: normal bowel sounds Const General: healthy appearing and comfortable GI Inspection: incision (Patient has incision above the umbilicus in skirts around the right side of) Palpation: soft and tender (She has minimal tenderness at the incision. 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, 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) current occupational exposures/hazards: No [place]wick/roman catholic: Confucianism special [place] needs: No travel history: recent (domestic only) Safety seatbelt use: always helmet use: Yes water heater temp set < 120 deg: Yes working smoke detector in home: Yes fire extinguisher in home: Yes carbon monox detector in home: Yes firearms in home: No do you feel safe at home: Yes Tobacco & Substance Use Smoking Status: Never smoker alcohol intake: former (occasionally when not ) substance use type: does not use Diet and Exercise during the past year weight has: remained stable daily servings fruits/ve-4 caffeine: Yes (2 cups black tea) Type(s) of exercise: walking, bicycling and yoga frequency: 5-6 times per week Assessment & Plan Assessment and plan (1) Abdominal pain complicating : Status: Acute Plan Or pain noted at this time it does not appear to be arrhythmic. It appears to be intermittent in nature. 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 This probably is adhesions from that surgery. This occurred after the of her last child. Bedside ultrasound showed a live child inside the uterus with good cardiac as well as motion. Is posterior in location amniotic fluid is good. Assessment & Plan narrative: We will monitor the patient for contractions if none are seen we will send patient home. Patient has been instructed to try and minimize her activity.
== END 2023-11-21 20:35 | disposition home or self-care (01) ==
LOC: OB 11-22 14:11
PROVIDERS: Family Provider Family Medicine; PCP Family Medicine; Referring Provider Obstetrics & Gynecology; Visit Provider Obstetrics & Gynecology
DX: O26.892 Other specified pregnancy related conditions, second trimester (principal); R10.33 Periumbilical pain; Z3A.21 21 weeks gestation of pregnancy
CPT/HCPCS: 59025; 76815; G0378; G0379

== ENCOUNTER 2023-12-21 09:00 | Outpatient (RCR) | payer OTHER, MEDICAID, SELFPAY ==
--- NOTE | 2023-10-19 16:02 | PT.OIE ---
Current Diagnoses Other chronic pain (10/19/23) Sacrococcygeal disorders, not elsewhere classified (10/19/23) Past Medical History (Last Reviewed 09/13/23 @ 12:48 by Daysi Shen MD) Abdominal tumor Breast abscess renal anomaly LGA (large for gestational age) fetus Long COVID Past Surgical History (Last Reviewed 09/13/23 @ 12:48 by Daysi Shen MD) H/O abdominal surgery History of tonsillectomy (~1982) Visit Care Team Role Provider Type Indu Bernardo MD Family Provider Physician Primary Care Provider Specialty: [facility] Practice Address: [address] [place] [address], [place], [address] Email: [email or web address] Daysi Shen MD Attending Provider Physician Referring Provider Specialty: [facility] Address: [address] [place] [address], [address], [place], [address] Email: [email or web address] Physical Therapy Initial Evaluation PT-OP-A Visit Information Start: 10/19/23 09:47 Freq: Status: Active Protocol: Document 10/19/23 16:02 NM (Rec: 10/19/23 16:34 NM [id number]) Out-Patient Physical Therapy Visit Information Visit Information Visit Type Initial Evaluation Visit Start Time 09:45 Visit Stop Time 10:30 Total Visit Minutes 45 Visit Number 1 Evaluation Information Evaluation Date 10/19/23 Precautions Precautions PT-OP-B Current Condition Start: 10/19/23 09:47 Freq: Status: Active Protocol: Document 10/19/23 16:02 NM (Rec: 10/19/23 16:34 NM [id number]) Current Condition History of Current Condition Onset Date 08/2023 Current Complaints SIJ pain, low back discomfort History of Current Condition Pt presents to clinic with B SIJ pain. She is , and this is her fourth child. She has had PT before for SIJ pain during a different ; however, she states that it was not helpful. Pt reports that she is experiencing tightness in her piriformis in addition to B posterolateral hip pain. She has been rolling out her piriformis muscles with a foam roller. She participates in yoga/pilates normally, but she has not been able to participate recently due to SIJ pain. She has pain with any stance position where her legs are not together under her ROBERTO, bending over, and walking. She has been exercising in a deep pool to help offload her joints, which is reports is helpful overall but not for SIJ pain. Treatment Goals Patient/Caregiver Goals Decrease SIJ pain, feel more stable Prior Functional Status Baseline Function- ADL's Independent Baseline Function- Mobility Independent Baseline Function- Gait Able to walk miles without pain Current Functional Impairments (Reported) Functional Limitations- Mobility/Gait Unable to walk >15 min due to pain PT-OP-C Subjective Start: 10/19/23 09:47 Freq: Status: Active Protocol: Document 10/19/23 16:02 NM (Rec: 10/19/23 16:34 NM [id number]) OP-PT Subjective Patient Comments Patient Comments See hx for pt report Patient Questionnaires Oswestry Low Back Index Oswestry Score 22/50 Oswestry Impairment 20 to 39% Impaired (Score 20- 39) OP-PT Pain Assessment Pain Assessment Grid Paper Pain Assessment Grid Completed Yes Location SI joint Pain Location Details B SIJ, along sacral bases Intensity 3 Scale Used Numeric (0 - 10) Description Pinching,Sharp Frequency Constant Radiating Location radiates to B hips (R>L), B piriformis Pain Aggravating Factors Position,Changing Position, Activity,Exercise,Standing, Walking,Bending Pain Alleviating Factors Heat,Rest Pain Behaviors Pain Behaviors Holding Area PT-OP-D Balance Start: 10/19/23 09:47 Freq: Status: Active Protocol: Document 10/19/23 16:02 NM (Rec: 10/19/23 16:34 NM [id number]) Balance Tests Single Limb Standing Single Limb- Right 28 sec (no pain reported) Single Limb- Left 23 sec (no pain reported) PT-OP-E Functional Tests Start: 10/19/23 09:47 Freq: Status: Active Protocol: Document 10/19/23 16:02 NM (Rec: 10/19/23 16:34 NM [id number]) Functional Tests Squat Test Score 1x Comments L weight shift, painful PT-OP-F Manual Assessment Start: 10/19/23 09:47 Freq: Status: Active Protocol: Document 10/19/23 16:02 NM (Rec: 10/19/23 16:34 NM [id number]) Manual Assessments Soft Tissue Assessment Soft Tissue Mobility Assessment Soft tissue restrictions of piriformis, hip flexors Joint Mobility Assessment Joint Mobility Assessment Limited hip flex, IR bilaterally. SIJ is neutral, no noted elevations or depressions at sacral bases or ILAs. P-A springing (grade III) of 6 points along sacral base, ILAs, joint line are negative, do not provoke symptomatic pain. PT-OP-G Mobility & Gait Start: 10/19/23 09:47 Freq: Status: Active Protocol: Document 10/19/23 16:02 NM (Rec: 10/19/23 16:34 NM [id number]) OP Gait Assessment Gait Deviations General Gait Pattern Antalgic Factors Limiting Gait Function Factors Limiting Gait Function Decreased Activity Tolerance, Limited Range of Motion,Pain PT-OP-H Neuro Start: 10/19/23 09:47 Freq: Status: Active Protocol: Document 10/19/23 16:02 NM (Rec: 10/19/23 16:34 NM [id number]) Sensation Evaluation Gross Sensation Gross Sensation WNL Comments Summary Comments Intact BLE and lumbar spine to light touch sensation PT-OP-J Posture/Palpation/Skin Start: 10/19/23 09:47 Freq: Status: Active Protocol: Document 10/19/23 16:02 NM (Rec: 10/19/23 16:34 NM [id number]) Posture Evaluation Position Standing Evaluation View posterior, lateral Head/C-Spine Posture Neutral Position L-Spine Posture Increased Lordosis Pelvis Posture Anteriorly Tilted Weight Distribution Weight Shifted Anterior Hip Posture (L) Externally Rotated,(R) Externally Rotated Knee Posture (L) Genu Valgus,(R) Genu Valgus Palpation Assessment Location Piriformis Palpation Location bilaterally Palpation Findings Spasm,Tenderness Palpation Details Tender to palpation, limits hip motion. PT-OP-K Range of Motion Start: 10/19/23 09:47 Freq: Status: Active Protocol: Document 10/19/23 16:02 NM (Rec: 10/19/23 16:34 NM [id number]) Lumbar Spine Range of Motion Lumbar Spine Active Percentage Testing Position Standing Flexion 50 Extension 100 Lateral Flexion Left 100 Lateral Flexion Right 50 ROM Limitations Soft Tissue Tightness,Pain Comments Flexion and lateral flexion reproduces R SIJ pain L lateral flex to knee joint line, R lateral flex to mid- thigh Hip Goniometric Range of Motion Hip Left Testing Position supine and sitting Flexion w/Knee Flexed 100 Abduction 30 Internal Rotation 29 External Rotation 15 Right Testing Position supine and sitting Flexion w/Knee Flexed 100 Abduction 30 Internal Rotation 27 External Rotation 27 Comments Painful hip IR Hip ROM Limitations Hip ROM Limitations Soft Tissue Tightness PT-OP-L Special Tests Start: 10/19/23 09:47 Freq: Status: Active Protocol: Document 10/19/23 16:02 NM (Rec: 10/19/23 16:34 NM [id number]) Special Tests Lumbar Spine Special Tests Posterior Gap/Distraction Test Results positive B Comments for SIJ Thigh Thrust Test Results positive R Comments for SIJ Gaenslen's Test Test Results positive B Comments for SIJ Anterior Gap/Distraction Test Results negative B Comments compression/distraction B ASIS (for SIJ) Active Straight Leg Raise Test Results positive Comments painful active SLR, no pain with B ASIS stabilization PT-OP-M Strength Start: 10/19/23 09:47 Freq: Status: Active Protocol: Document 10/19/23 16:02 NM (Rec: 10/19/23 16:34 NM [id number]) Hip Strength Hip Manual Muscle Testing Left Flexion (L2) 4 Good Abduction 4 Good Adduction 5 Normal External Rotation 4 Good Internal Rotation 4 Good Right Flexion (L2) 4- Good- Abduction 4 Good Adduction 5 Normal External Rotation 4- Good- Internal Rotation 4 Good Comments Pain with flex and IR Knee Strength Knee Manual Muscle Testing Left Flexion (S2) 5 Normal Extension (L3) 5 Normal Right Flexion (S2) 4- Good- Extension (L3) 5 Normal Comments Pain with knee flex PT-OP-Q Treatments Start: 10/19/23 09:47 Freq: Status: Active Protocol: Document 10/19/23 16:02 NM (Rec: 10/19/23 16:34 NM [id number]) Self-Care/Home Management Treatment Education Patient Education Pain Management Other Education SI belt placement, usage PT-OP-T Assessment and Plan Start: 10/19/23 09:47 Freq: Status: Active Protocol: Document 10/19/23 16:02 NM (Rec: 10/19/23 16:34 NM [id number]) Physical Therapy Assessment Rehab Potential Rehabilitation Potential Good Evaluation Complexity Number of Personal Factors/Comorbidities 1-2 Number of Body Systems Impaired 1-2 Clinical Presentation at Evaluation Stable Impairments Impairments Functional Activities, Functional Mobility,Gait,Pain, Posture,ROM,Soft Tissue Mobility,Strength,Transfers Other Impairments Body mechanics during bending, lifting Core/trunk stabilization Goals Nine Impairment function, gait Closing Agent Goal (LTG) Pt will be able to walk for at leat 15 min with 2/10 pain or less to demo improved SI joint stability and activity tolerance. LTG Duration 8 weeks Eight Impairment ROM Closing Agent Goal (LTG) Pt will improve L hip ER AROM by at least 10 deg to be comparable to RLE for increased hip ROM for . LTG Duration 8 weeks Seven Impairment ROM Closing Agent Goal (LTG) Pt will improve BLE hip flex ROM to > 100 deg in order to demo decreased hip flexor tightness for improved posture during . LTG Duration 8 weeks Six Impairment strength Short Term Goal (STG) Pt will improve BLE hip strength to at least 4/5 with pain <2/10 for improved stability and activity tolerance for ADLs. STG Duration 4 weeks Chcf Goal (LTG) Pt will improve BLE hip strength to at least 4+/5 with pain of <2/10 for improved stability and activity tolerance for ADLs. LTG Duration 8 weeks Five Impairment HEP Closing Agent Goal (LTG) Pt will be independent with HEP at least 5 days/wk in order to maximize gains made during PT and to promote independence. LTG Duration 8 weeks Four Impairment education, posture Closing Agent Goal (LTG) Pt will be educated on posture to decrease -related lordosis, improve trunk stabilization and to decrease pain during standing/walking for improved QOL. LTG Duration 8 weeks Three Impairment function Closing Agent Goal (LTG) Pt will demonstrate safe lifting mechanics and joint protection strategies while lifting and moving objects, such as a baby carrier, in 3/5 trials. LTG Duration 8 weeks Two Impairment function, core stabilization Closing Agent Goal (LTG) Pt will be able to isolate her core and demo TA activation in at least 3/5 trials during for improved stabilization and body mechanics during ADLs. LTG Duration 8 weeks One Impairment function Impairment Oswestry score 22/50 Short Term Goal (STG) Pt will decrease Oswestry score by at least 6 points in order to demo improved activity tolerance and QOL. STG Duration 4 weeks Closing Agent Goal (LTG) Pt will decrease Oswestry score by at least 12 points (1 MCID) in order to demo improved activity tolerance and QOL. LTG Duration 8 weeks Assessment Summary Assessment Pt presents to clinic with B SI joint pain and B hip pain, likely related to . Her primary complaints are pain, stiffness, difficulty ambulating, and SI joint instability. She demos limitations in B hip flex and L hip ER ROM. She also has limitations in trunk flexion and lateral flexion secondary to SI joint pain. Her hip strength is globally 4/5 with painful flexion and IR. She also demos restrictions in her B piriformis, which is limiting her hip mobility. Pain can be reproduced with active straight leg raise ( improved with stabilization at pelvis) and Laslett clusters. Pt has an SI belt; she was educated today on proper placement and wear times. She demos an anterior pelvic tilt and increased lordosis consistent with posture. Pt would benefit from skilled intervention to promote SI joint stability for improved ADL and activity tolerance, improved QOL, postural and body mechanics training, and mobility and safe exercising during the remainder of her . Physical Therapy Plan Frequency and Duration Frequency of Treatment 1-2x/wk Duration of treatment (weeks) 8 Plan of Care Start Date 10/19/23 Plan of Care End Date 12/21/23 Therapeutic Interventions Therapeutic Interventions Balance Training,Home Exercise Program,Joint Mobilizations, Manual Therapy,Neuromuscular Re-education,Patient/Caregiver Education,Self-Care/Home Management,Soft Tissue Mobilization,Taping, Therapeutic Activities, Therapeutic Exercises Next Visit Focus/Plan Next Note Type Treatment Note Next Visit Plan Gentle SIJ exercises, TA activation; education: posture , stabilization, body mechanics, SI belt review
--- NOTE | 2023-10-20 17:06 | PT.OPPOC ---
Physical, Occupational & Speech Therapy At [facility] Current Diagnoses Other chronic pain (10/19/23) Sacrococcygeal disorders, not elsewhere classified (10/19/23) Visit Care Team Role Provider Type Indu Bernardo MD Family Provider Physician Primary Care Provider Specialty: [facility] Address: [address] [place] [address], [address], [place], [address] Email: [email or web address] Daysi Shen MD Attending Provider Physician Referring Provider Specialty: [facility] Address: [address] [place] [address], [address], [place], [address] Email: [email or web address] Plan Of Care PT-OP-T Assessment and Plan Start: 10/19/23 09:47 Freq: Status: Active Protocol: Document 10/19/23 16:02 NM (Rec: 10/19/23 16:34 NM [id number]) Physical Therapy Assessment Rehab Potential Rehabilitation Potential Good Evaluation Complexity Number of Personal Factors/Comorbidities 1-2 Number of Body Systems Impaired 1-2 Clinical Presentation at Evaluation Stable Impairments Impairments Functional Activities, Functional Mobility,Gait,Pain, Posture,ROM,Soft Tissue Mobility,Strength,Transfers Other Impairments Body mechanics during bending, lifting Core/trunk stabilization Goals Nine Impairment function, gait Fpc Goal (LTG) Pt will be able to walk for at leat 15 min with 2/10 pain or less to demo improved SI joint stability and activity tolerance. LTG Duration 8 weeks Eight Impairment ROM Fpc Goal (LTG) Pt will improve L hip ER AROM by at least 10 deg to be comparable to RLE for increased hip ROM for . LTG Duration 8 weeks Seven Impairment ROM Fpc Goal (LTG) Pt will improve BLE hip flex ROM to > 100 deg in order to demo decreased hip flexor tightness for improved posture during . LTG Duration 8 weeks Six Impairment strength Short Term Goal (STG) Pt will improve BLE hip strength to at least 4/5 with pain <2/10 for improved stability and activity tolerance for ADLs. STG Duration 4 weeks Foil Cutter Goal (LTG) Pt will improve BLE hip strength to at least 4+/5 with pain of <2/10 for improved stability and activity tolerance for ADLs. LTG Duration 8 weeks Five Impairment HEP Foil Cutter Goal (LTG) Pt will be independent with HEP at least 5 days/wk in order to maximize gains made during PT and to promote independence. LTG Duration 8 weeks Four Impairment education, posture Fpc Goal (LTG) Pt will be educated on posture to decrease -related lordosis, improve trunk stabilization and to decrease pain during standing/walking for improved QOL. LTG Duration 8 weeks Three Impairment function Fpc Goal (LTG) Pt will demonstrate safe lifting mechanics and joint protection strategies while lifting and moving objects, such as a baby carrier, in 3/5 trials. LTG Duration 8 weeks Two Impairment function, core stabilization Foil Cutter Goal (LTG) Pt will be able to isolate her core and demo TA activation in at least 3/5 trials during for improved stabilization and body mechanics during ADLs. LTG Duration 8 weeks One Impairment function Impairment Oswestry score 22/50 Short Term Goal (STG) Pt will decrease Oswestry score by at least 6 points in order to demo improved activity tolerance and QOL. STG Duration 4 weeks Foil Cutter Goal (LTG) Pt will decrease Oswestry score by at least 12 points (1 MCID) in order to demo improved activity tolerance and QOL. LTG Duration 8 weeks Assessment Summary Assessment Pt presents to clinic with B SI joint pain and B hip pain, likely related to . Her primary complaints are pain, stiffness, difficulty ambulating, and SI joint instability. She demos limitations in B hip flex and L hip ER ROM. She also has limitations in trunk flexion and lateral flexion secondary to SI joint pain. Her hip strength is globally 4/5 with painful flexion and IR. She also demos restrictions in her B piriformis, which is limiting her hip mobility. Pain can be reproduced with active straight leg raise ( improved with stabilization at pelvis) and Laslett clusters. Pt has an SI belt; she was educated today on proper placement and wear times. She demos an anterior pelvic tilt and increased lordosis consistent with posture. Pt would benefit from skilled intervention to promote SI joint stability for improved ADL and activity tolerance, improved QOL, postural and body mechanics training, and mobility and safe exercising during the remainder of her . Physical Therapy Plan Frequency and Duration Frequency of Treatment 1-2x/wk Duration of treatment (weeks) 8 Plan of Care Start Date 10/19/23 Plan of Care End Date 12/21/23 Therapeutic Interventions Therapeutic Interventions Balance Training,Home Exercise Program,Joint Mobilizations, Manual Therapy,Neuromuscular Re-education,Patient/Caregiver Education,Self-Care/Home Management,Soft Tissue Mobilization,Taping, Therapeutic Activities, Therapeutic Exercises Next Visit Focus/Plan Next Note Type Treatment Note Next Visit Plan Gentle SIJ exercises, TA activation; education: posture , stabilization, body mechanics, SI belt review Plan of Care Dates Plan of Care Start Date 10/19/23 Plan of Care End Date 12/21/23 Electronically Signed by: Zenia Pineda, PT 10/20/23 9536 If you are in agreement with this Plan of Care, please return a signed and dated copy. I have reviewed this Plan of Care and certify that the skilled therapy services above are required to meet the patient?s needs. Physician Signature Date Printed Name and Credentials Clinical Instructor Signature Printed Name and Credentials
--- NOTE | 2023-10-26 16:25 | PT.OTN ---
Current Diagnoses Other chronic pain (10/26/23) Sacrococcygeal disorders, not elsewhere classified (10/26/23) Physical Therapy Treatment Note PT-OP-A Visit Information Start: 10/19/23 09:47 Freq: Status: Active Protocol: Document 10/26/23 09:46 NM (Rec: 10/26/23 10:30 NM [id number]) Out-Patient Physical Therapy Visit Information Visit Information Visit Type Treatment Note Visit Start Time 09:45 Visit Stop Time 10:30 Total Visit Minutes 45 Visit Number 2 Evaluation Information Evaluation Date 10/19/23 Precautions Precautions PT-OP-B Current Condition Start: 10/19/23 09:47 Freq: Status: Active Protocol: Document 10/19/23 16:02 NM (Rec: 10/19/23 16:34 NM [id number]) Current Condition History of Current Condition Onset Date 08/2023 Current Complaints SIJ pain, low back discomfort History of Current Condition Pt presents to clinic with B SIJ pain. She is , and this is her fourth child. She has had PT before for SIJ pain during a different ; however, she states that it was not helpful. Pt reports that she is experiencing tightness in her piriformis in addition to B posterolateral hip pain. She has been rolling out her piriformis muscles with a foam roller. She participates in yoga/pilates normally, but she has not been able to participate recently due to SIJ pain. She has pain with any stance position where her legs are not together under her ROBERTO, bending over, and walking. She has been exercising in a deep pool to help offload her joints, which is reports is helpful overall but not for SIJ pain. Treatment Goals Patient/Caregiver Goals Decrease SIJ pain, feel more stable Prior Functional Status Baseline Function- ADL's Independent Baseline Function- Mobility Independent Baseline Function- Gait Able to walk miles without pain Current Functional Impairments (Reported) Functional Limitations- Mobility/Gait Unable to walk >15 min due to pain PT-OP-C Subjective Start: 10/19/23 09:47 Freq: Status: Active Protocol: Document 10/26/23 09:46 NM (Rec: 10/26/23 10:30 NM [id number]) OP-PT Subjective Patient Comments Patient Comments Pt presents with 4/ B SI joint pain. She reports doing a pilates reformer class last Wednesday, which she thinks was too aggressive. She also reports sneezing so hard on that she was unable to weight bear on her RLE due to pain in addition to the reformer class on the previous day. She reports that her symptoms have improved since , but she still reports feeling flared up. PT-OP-D Balance Start: 10/19/23 09:47 Freq: Status: Active Protocol: Document 10/19/23 16:02 NM (Rec: 10/19/23 16:34 NM [id number]) Balance Tests Single Limb Standing Single Limb- Right 28 sec (no pain reported) Single Limb- Left 23 sec (no pain reported) PT-OP-E Functional Tests Start: 10/19/23 09:47 Freq: Status: Active Protocol: Document 10/19/23 16:02 NM (Rec: 10/19/23 16:34 NM [id number]) Functional Tests Squat Test Score 1x Comments L weight shift, painful PT-OP-F Manual Assessment Start: 10/19/23 09:47 Freq: Status: Active Protocol: Document 10/19/23 16:02 NM (Rec: 10/19/23 16:34 NM [id number]) Manual Assessments Soft Tissue Assessment Soft Tissue Mobility Assessment Soft tissue restrictions of piriformis, hip flexors Joint Mobility Assessment Joint Mobility Assessment Limited hip flex, IR bilaterally. SIJ is neutral, no noted elevations or depressions at sacral bases or ILAs. P-A springing (grade III) of 6 points along sacral base, ILAs, joint line are negative, do not provoke symptomatic pain. PT-OP-G Mobility & Gait Start: 10/19/23 09:47 Freq: Status: Active Protocol: Document 10/19/23 16:02 NM (Rec: 10/19/23 16:34 NM [id number]) OP Gait Assessment Gait Deviations General Gait Pattern Antalgic Factors Limiting Gait Function Factors Limiting Gait Function Decreased Activity Tolerance, Limited Range of Motion,Pain PT-OP-H Neuro Start: 10/19/23 09:47 Freq: Status: Active Protocol: Document 10/19/23 16:02 NM (Rec: 10/19/23 16:34 NM [id number]) Sensation Evaluation Gross Sensation Gross Sensation WNL Comments Summary Comments Intact BLE and lumbar spine to light touch sensation PT-OP-J Posture/Palpation/Skin Start: 10/19/23 09:47 Freq: Status: Active Protocol: Document 10/19/23 16:02 NM (Rec: 10/19/23 16:34 NM [id number]) Posture Evaluation Position Standing Evaluation View posterior, lateral Head/C-Spine Posture Neutral Position L-Spine Posture Increased Lordosis Pelvis Posture Anteriorly Tilted Weight Distribution Weight Shifted Anterior Hip Posture (L) Externally Rotated,(R) Externally Rotated Knee Posture (L) Genu Valgus,(R) Genu Valgus Palpation Assessment Location Piriformis Palpation Location bilaterally Palpation Findings Spasm,Tenderness Palpation Details Tender to palpation, limits hip motion. PT-OP-K Range of Motion Start: 10/19/23 09:47 Freq: Status: Active Protocol: Document 10/19/23 16:02 NM (Rec: 10/19/23 16:34 NM [id number]) Lumbar Spine Range of Motion Lumbar Spine Active Percentage Testing Position Standing Flexion 50 Extension 100 Lateral Flexion Left 100 Lateral Flexion Right 50 ROM Limitations Soft Tissue Tightness,Pain Comments Flexion and lateral flexion reproduces R SIJ pain L lateral flex to knee joint line, R lateral flex to mid- thigh Hip Goniometric Range of Motion Hip Left Testing Position supine and sitting Flexion w/Knee Flexed 100 Abduction 30 Internal Rotation 29 External Rotation 15 Right Testing Position supine and sitting Flexion w/Knee Flexed 100 Abduction 30 Internal Rotation 27 External Rotation 27 Comments Painful hip IR Hip ROM Limitations Hip ROM Limitations Soft Tissue Tightness PT-OP-L Special Tests Start: 10/19/23 09:47 Freq: Status: Active Protocol: Document 10/19/23 16:02 NM (Rec: 10/19/23 16:34 NM [id number]) Special Tests Lumbar Spine Special Tests Posterior Gap/Distraction Test Results positive B Comments for SIJ Thigh Thrust Test Results positive R Comments for SIJ Gaenslen's Test Test Results positive B Comments for SIJ Anterior Gap/Distraction Test Results negative B Comments compression/distraction B ASIS (for SIJ) Active Straight Leg Raise Test Results positive Comments painful active SLR, no pain with B ASIS stabilization PT-OP-M Strength Start: 10/19/23 09:47 Freq: Status: Active Protocol: Document 10/19/23 16:02 NM (Rec: 10/19/23 16:34 NM [id number]) Hip Strength Hip Manual Muscle Testing Left Flexion (L2) 4 Good Abduction 4 Good Adduction 5 Normal External Rotation 4 Good Internal Rotation 4 Good Right Flexion (L2) 4- Good- Abduction 4 Good Adduction 5 Normal External Rotation 4- Good- Internal Rotation 4 Good Comments Pain with flex and IR Knee Strength Knee Manual Muscle Testing Left Flexion (S2) 5 Normal Extension (L3) 5 Normal Right Flexion (S2) 4- Good- Extension (L3) 5 Normal Comments Pain with knee flex PT-OP-Q Treatments Start: 10/19/23 09:47 Freq: Status: Active Protocol: Document 10/26/23 09:46 NM (Rec: 10/26/23 10:30 NM [id number]) Therapeutic Exercises Prone Exercises Child's Pose Prone Exercise Name feet together, knees apart Side bilateral Reps/Minutes 60 Comments for low back stretch Sitting Exercises Hip flexor stretch Sitting Exercise Name to decrease hip flex tightness and LS lordosis Side bilateral Equipment Used green spanish ball, plinth for UE support Reps/Minutes 2x30 Comments tolerates well unless RLE is extended, then gets tightness in calf ~sciatic Standing Exercises Calf stretch Standing Exercise Name calf pain after hip flex stretch Side bilateral Equipment Used DENISE Reps/Minutes 2x30 Comments reports relief afterward Other Exercises Quadruped Cat Cow Other Exercise Name with TA activation; neutral spine to flexed, no extension Side bilateral Reps/Minutes 2x10 Comments cues for TA activation; no ext to prevent SIJ pain Quadruped TL Side Bend Other Exercise Name with TA activation Side bilateral Reps/Minutes 10x2 Comments cues for TA activation, within pain free range Quadruped Thoracic Rotation Other Exercise Name with TA activation, Reach under only Side bilateral Reps/Minutes 10x2 Comments cues for TA activation Therapeutic Activity Therapeutic Activity TA activation Comments Quadruped: core bracing with TA activation. PT cueing for belly button to spine then relaxing belly button to floor while also cueing breathing, 10x10 For stabilization during standing, walking, lifting, squatting, ADLs Performs with good activation, good control of pelvic floor and abdominals. Able to perform while breathing, no pain reported. Manual Therapy Treatment Soft Tissue Mobilization Glutes Mobilization Type Instrument Assisted,Myofascial Release,Oscillations,Rolling, Sustained Pressure,Other Intensity/Depth Moderate Body Position Prone Comments B piriformis (R>L). R piriformis spasming with sustained pressure > relaxation, performed MWM (hip moving into ER/IR with soft tissue to target piriformis). Reports relief Prone on pillow Lumbar Spine Mobilization Type Rolling,Strumming,Sustained Pressure Intensity/Depth Superficial Body Position Prone Comments Erector spinae, QLs demo soft tissue restriction, relaxed with sustained pressure and strumming. Pt reports relief in low back Nerve Glides Sciatic Nerve Body Position seated Reps/Duration 1x10 Comments RLE- pt reports no change in nerve symptoms in calf, but they are not more aggravated Self-Care/Home Management Treatment Education Patient Education Body Mechanics,Home Exercise Program,Joint Protection,Pain Management,Posture Other Education HO issued with information about daily activities to limit (e.g. bending over vs squatting to pick something up ), HEP HO, TA activation HO, PT-OP-T Assessment and Plan Start: 10/19/23 09:47 Freq: Status: Active Protocol: Document 10/26/23 09:46 NM (Rec: 10/26/23 10:30 NM [id number]) Physical Therapy Assessment Goals Nine Impairment function, gait Mcfp Goal (LTG) Pt will be able to walk for at leat 15 min with 2/10 pain or less to demo improved SI joint stability and activity tolerance. LTG Duration 8 weeks Eight Impairment ROM Mcfp Goal (LTG) Pt will improve L hip ER AROM by at least 10 deg to be comparable to RLE for increased hip ROM for . LTG Duration 8 weeks Seven Impairment ROM Mcfp Goal (LTG) Pt will improve BLE hip flex ROM to > 100 deg in order to demo decreased hip flexor tightness for improved posture during . LTG Duration 8 weeks Six Impairment strength Short Term Goal (STG) Pt will improve BLE hip strength to at least 4/5 with pain <2/10 for improved stability and activity tolerance for ADLs. STG Duration 4 weeks Mcfp Goal (LTG) Pt will improve BLE hip strength to at least 4+/5 with pain of <2/10 for improved stability and activity tolerance for ADLs. LTG Duration 8 weeks Five Impairment HEP Mcfp Goal (LTG) Pt will be independent with HEP at least 5 days/wk in order to maximize gains made during PT and to promote independence. LTG Duration 8 weeks Four Impairment education, posture Mcfp Goal (LTG) Pt will be educated on posture to decrease -related lordosis, improve trunk stabilization and to decrease pain during standing/walking for improved QOL. LTG Duration 8 weeks Three Impairment function Solid Die Cutter Goal (LTG) Pt will demonstrate safe lifting mechanics and joint protection strategies while lifting and moving objects, such as a baby carrier, in 3/5 trials. LTG Duration 8 weeks Two Impairment function, core stabilization Mcfp Goal (LTG) Pt will be able to isolate her core and demo TA activation in at least 3/5 trials during for improved stabilization and body mechanics during ADLs. LTG Duration 8 weeks One Impairment function Impairment Oswestry score 22/50 Short Term Goal (STG) Pt will decrease Oswestry score by at least 6 points in order to demo improved activity tolerance and QOL. STG Duration 4 weeks Solid Die Cutter Goal (LTG) Pt will decrease Oswestry score by at least 12 points (1 MCID) in order to demo improved activity tolerance and QOL. LTG Duration 8 weeks Assessment Summary Assessment Pt tolerated session well with no increased pain during quadruped activities. She reports SIJ relief with child' s pose stretch, lumbar lateral flexion, and hip flexor stretch. During the second set of the hip flexor stretch on the RLE, pt began to report sciatic nerve symptoms (a new symptom). PT instructed pt in a sciatic nerve glide, but no change with nerve glide; however, her calf tightness and sciatic symptoms improved with calf stretch. Manual tmt to focus on reducing tenderness of piriformis muscles and decrease gluteal tightness. Pt issued HEP with: quadruped TL sidebend, quadruped cat/cow, quadruped TA activation, child's pose, quadruped thoracic rotation, hip flexor stretch. Pt would benefit from skilled PT intervention for symptom reduction, postural and body mechanics education, and activity tolerance to limit SIJ symptoms and maintain activity/ability to perform ADLs during remainder of . Physical Therapy Plan Frequency and Duration Frequency of Treatment 1-2x/wk Duration of treatment (weeks) 8 Plan of Care Start Date 10/19/23 Plan of Care End Date 12/21/23 Therapeutic Interventions Therapeutic Interventions Balance Training,Home Exercise Program,Joint Mobilizations, Manual Therapy,Neuromuscular Re-education,Patient/Caregiver Education,Self-Care/Home Management,Soft Tissue Mobilization,Taping, Therapeutic Activities, Therapeutic Exercises Next Visit Focus/Plan Next Note Type Treatment Note Next Visit Plan Gentle SIJ exercises, TA activation; education: posture , stabilization, body mechanics, SI belt review. Hip ADD with bridge, any ADD exercises
--- NOTE | 2023-11-02 11:49 | PT.OTN ---
Current Diagnoses Other chronic pain (11/02/23) Sacrococcygeal disorders, not elsewhere classified (11/02/23) Physical Therapy Treatment Note PT-OP-A Visit Information Start: 10/19/23 09:47 Freq: Status: Active Protocol: Document 11/02/23 09:52 NM (Rec: 11/02/23 10:33 NM [id number]) Out-Patient Physical Therapy Visit Information Visit Information Visit Type Treatment Note Visit Start Time 09:50 Visit Stop Time 10:30 Total Visit Minutes 40 Visit Number 3 Evaluation Information Evaluation Date 10/19/23 Precautions Precautions PT-OP-B Current Condition Start: 10/19/23 09:47 Freq: Status: Active Protocol: Document 10/19/23 16:02 NM (Rec: 10/19/23 16:34 NM [id number]) Current Condition History of Current Condition Onset Date 08/2023 Current Complaints SIJ pain, low back discomfort History of Current Condition Pt presents to clinic with B SIJ pain. She is , and this is her fourth child. She has had PT before for SIJ pain during a different ; however, she states that it was not helpful. Pt reports that she is experiencing tightness in her piriformis in addition to B posterolateral hip pain. She has been rolling out her piriformis muscles with a foam roller. She participates in yoga/pilates normally, but she has not been able to participate recently due to SIJ pain. She has pain with any stance position where her legs are not together under her ROBERTO, bending over, and walking. She has been exercising in a deep pool to help offload her joints, which is reports is helpful overall but not for SIJ pain. Treatment Goals Patient/Caregiver Goals Decrease SIJ pain, feel more stable Prior Functional Status Baseline Function- ADL's Independent Baseline Function- Mobility Independent Baseline Function- Gait Able to walk miles without pain Current Functional Impairments (Reported) Functional Limitations- Mobility/Gait Unable to walk >15 min due to pain PT-OP-C Subjective Start: 10/19/23 09:47 Freq: Status: Active Protocol: Document 11/02/23 09:52 NM (Rec: 11/02/23 10:33 NM [id number]) OP-PT Subjective Patient Comments Patient Comments Pt presents with 02/22 B SIJ pain; compliant with exercises . She reports pt on she had another episode where she coudn't stand up due to pain, decreased after chiro visit (no adjustments, just a tool along the spine for relaxation). She also reports increased spasming with piriformis at night. PT-OP-D Balance Start: 10/19/23 09:47 Freq: Status: Active Protocol: Document 10/19/23 16:02 NM (Rec: 10/19/23 16:34 NM [id number]) Balance Tests Single Limb Standing Single Limb- Right 28 sec (no pain reported) Single Limb- Left 23 sec (no pain reported) PT-OP-E Functional Tests Start: 10/19/23 09:47 Freq: Status: Active Protocol: Document 10/19/23 16:02 NM (Rec: 10/19/23 16:34 NM [id number]) Functional Tests Squat Test Score 1x Comments L weight shift, painful PT-OP-F Manual Assessment Start: 10/19/23 09:47 Freq: Status: Active Protocol: Document 10/19/23 16:02 NM (Rec: 10/19/23 16:34 NM [id number]) Manual Assessments Soft Tissue Assessment Soft Tissue Mobility Assessment Soft tissue restrictions of piriformis, hip flexors Joint Mobility Assessment Joint Mobility Assessment Limited hip flex, IR bilaterally. SIJ is neutral, no noted elevations or depressions at sacral bases or ILAs. P-A springing (grade III) of 6 points along sacral base, ILAs, joint line are negative, do not provoke symptomatic pain. PT-OP-G Mobility & Gait Start: 10/19/23 09:47 Freq: Status: Active Protocol: Document 10/19/23 16:02 NM (Rec: 10/19/23 16:34 NM [id number]) OP Gait Assessment Gait Deviations General Gait Pattern Antalgic Factors Limiting Gait Function Factors Limiting Gait Function Decreased Activity Tolerance, Limited Range of Motion,Pain PT-OP-H Neuro Start: 10/19/23 09:47 Freq: Status: Active Protocol: Document 10/19/23 16:02 NM (Rec: 10/19/23 16:34 NM [id number]) Sensation Evaluation Gross Sensation Gross Sensation WNL Comments Summary Comments Intact BLE and lumbar spine to light touch sensation PT-OP-J Posture/Palpation/Skin Start: 10/19/23 09:47 Freq: Status: Active Protocol: Document 10/19/23 16:02 NM (Rec: 10/19/23 16:34 NM [id number]) Posture Evaluation Position Standing Evaluation View posterior, lateral Head/C-Spine Posture Neutral Position L-Spine Posture Increased Lordosis Pelvis Posture Anteriorly Tilted Weight Distribution Weight Shifted Anterior Hip Posture (L) Externally Rotated,(R) Externally Rotated Knee Posture (L) Genu Valgus,(R) Genu Valgus Palpation Assessment Location Piriformis Palpation Location bilaterally Palpation Findings Spasm,Tenderness Palpation Details Tender to palpation, limits hip motion. PT-OP-K Range of Motion Start: 10/19/23 09:47 Freq: Status: Active Protocol: Document 10/19/23 16:02 NM (Rec: 10/19/23 16:34 NM [id number]) Lumbar Spine Range of Motion Lumbar Spine Active Percentage Testing Position Standing Flexion 50 Extension 100 Lateral Flexion Left 100 Lateral Flexion Right 50 ROM Limitations Soft Tissue Tightness,Pain Comments Flexion and lateral flexion reproduces R SIJ pain L lateral flex to knee joint line, R lateral flex to mid- thigh Hip Goniometric Range of Motion Hip Left Testing Position supine and sitting Flexion w/Knee Flexed 100 Abduction 30 Internal Rotation 29 External Rotation 15 Right Testing Position supine and sitting Flexion w/Knee Flexed 100 Abduction 30 Internal Rotation 27 External Rotation 27 Comments Painful hip IR Hip ROM Limitations Hip ROM Limitations Soft Tissue Tightness PT-OP-L Special Tests Start: 10/19/23 09:47 Freq: Status: Active Protocol: Document 10/19/23 16:02 NM (Rec: 10/19/23 16:34 NM [id number]) Special Tests Lumbar Spine Special Tests Posterior Gap/Distraction Test Results positive B Comments for SIJ Thigh Thrust Test Results positive R Comments for SIJ Gaenslen's Test Test Results positive B Comments for SIJ Anterior Gap/Distraction Test Results negative B Comments compression/distraction B ASIS (for SIJ) Active Straight Leg Raise Test Results positive Comments painful active SLR, no pain with B ASIS stabilization PT-OP-M Strength Start: 10/19/23 09:47 Freq: Status: Active Protocol: Document 10/19/23 16:02 NM (Rec: 10/19/23 16:34 NM [id number]) Hip Strength Hip Manual Muscle Testing Left Flexion (L2) 4 Good Abduction 4 Good Adduction 5 Normal External Rotation 4 Good Internal Rotation 4 Good Right Flexion (L2) 4- Good- Abduction 4 Good Adduction 5 Normal External Rotation 4- Good- Internal Rotation 4 Good Comments Pain with flex and IR Knee Strength Knee Manual Muscle Testing Left Flexion (S2) 5 Normal Extension (L3) 5 Normal Right Flexion (S2) 4- Good- Extension (L3) 5 Normal Comments Pain with knee flex PT-OP-Q Treatments Start: 10/19/23 09:47 Freq: Status: Active Protocol: Document 11/02/23 09:52 NM (Rec: 11/02/23 10:33 NM [id number]) Therapeutic Exercises Supine Exercises Bridge + hip ADD Side bilateral Equipment Used blude ball between knees Reps/Minutes 2x10x3 Comments cues for weight through heels Prone Exercises Child's Pose Prone Exercise Name feet together, knees apart Side bilateral Reps/Minutes 60 Comments for low back stretch; briefly at end of session after manual tmt Sitting Exercises Hip IR with ADD Side bilateral Resistance green tb (q[place]angin green) Equipment Used gold ball between knees Reps/Minutes 2x10 ea Comments performed ea side individually for max IR range Hip ADD Side bilateral Equipment Used med blue ball Reps/Minutes 2x10x5 Comments for hip ADD, address pubic symphsysis Standing Exercises Squat Standing Exercise Name isometric hold Side bilateral Equipment Used orange SB behind back Reps/Minutes 10x5 Comments cues to limit range d/t pain Manual Therapy Treatment Soft Tissue Mobilization Glutes Mobilization Type Instrument Assisted,Myofascial Release,Oscillations,Rolling, Sustained Pressure,Other Intensity/Depth Moderate Body Position Prone Comments B piriformis (R>L) and other external rotators, glute max/ med. R piriformis spasming with sustained pressure > relaxation, performed MWM (hip moving into ER/IR with soft tissue to target piriformis). Reports relief with mobilization. Prone on pillow PT-OP-T Assessment and Plan Start: 10/19/23 09:47 Freq: Status: Active Protocol: Document 11/02/23 09:52 NM (Rec: 11/02/23 10:33 NM [id number]) Physical Therapy Assessment Goals Nine Impairment function, gait Jail Goal (LTG) Pt will be able to walk for at leat 15 min with 2/10 pain or less to demo improved SI joint stability and activity tolerance. LTG Duration 8 weeks Eight Impairment ROM Jail Goal (LTG) Pt will improve L hip ER AROM by at least 10 deg to be comparable to RLE for increased hip ROM for . LTG Duration 8 weeks Seven Impairment ROM Jail Goal (LTG) Pt will improve BLE hip flex ROM to > 100 deg in order to demo decreased hip flexor tightness for improved posture during . LTG Duration 8 weeks Six Impairment strength Short Term Goal (STG) Pt will improve BLE hip strength to at least 4/5 with pain <2/10 for improved stability and activity tolerance for ADLs. STG Duration 4 weeks Jail Goal (LTG) Pt will improve BLE hip strength to at least 4+/5 with pain of <2/10 for improved stability and activity tolerance for ADLs. LTG Duration 8 weeks Five Impairment HEP Jail Goal (LTG) Pt will be independent with HEP at least 5 days/wk in order to maximize gains made during PT and to promote independence. LTG Duration 8 weeks Four Impairment education, posture Jail Goal (LTG) Pt will be educated on posture to decrease -related lordosis, improve trunk stabilization and to decrease pain during standing/walking for improved QOL. LTG Duration 8 weeks Three Impairment function Passenger Vessel [employer] Goal (LTG) Pt will demonstrate safe lifting mechanics and joint protection strategies while lifting and moving objects, such as a baby carrier, in 3/5 trials. LTG Duration 8 weeks Two Impairment function, core stabilization Jail Goal (LTG) Pt will be able to isolate her core and demo TA activation in at least 3/5 trials during for improved stabilization and body mechanics during ADLs. LTG Duration 8 weeks One Impairment function Impairment Oswestry score 22/50 Short Term Goal (STG) Pt will decrease Oswestry score by at least 6 points in order to demo improved activity tolerance and QOL. STG Duration 4 weeks Jail Goal (LTG) Pt will decrease Oswestry score by at least 12 points (1 MCID) in order to demo improved activity tolerance and QOL. LTG Duration 8 weeks Assessment Summary Assessment Pt reports no increased SIJ pain during session. Initiated hip ADD (isometric, bridge) and hip IR exercises to address muscle attachments to SIJ. Pt tolerates additional exercises well without any increase in symptoms with exception of wall squat isometric. She requires cues to stay within pain free range with squats, bridges and to weight shift posteriorly to decrease tendency to shift weight anteriorly/increase lumbar lordosis. She continues to have spasming and soft tissue restrictions of her B piriformis, likely due to trying to use the glutes to stabilize throughout the day. Manual tmt addressing glute and piriformis soft tissue restrictions using mobilization with movement to assist with muscle relaxation and contraction. PT and pt discussed improving pt awareness of utilizing core muscles vs glutes to stabilize low back/core, causing the piriformis to be overactive during the day. Next session, PT will address education regarding core stabilization without glute overactivation, posture. HEP: bridge ADD, seated hip IR. Pt would benefit from skilled PT to address impairments in BLE strength, pain reduction, and activity tolerance in order to manage symptoms and return to PLOF. Physical Therapy Plan Frequency and Duration Frequency of Treatment 1-2x/wk Duration of treatment (weeks) 8 Plan of Care Start Date 10/19/23 Plan of Care End Date 12/21/23 Therapeutic Interventions Therapeutic Interventions Balance Training,Home Exercise Program,Joint Mobilizations, Manual Therapy,Neuromuscular Re-education,Patient/Caregiver Education,Self-Care/Home Management,Soft Tissue Mobilization,Taping, Therapeutic Activities, Therapeutic Exercises Next Visit Focus/Plan Next Note Type Treatment Note Next Visit Plan Gentle SIJ exercises, TA activation; education: posture , stabilization, body mechanics Hip ADD with bridge, any ADD exercises
--- NOTE | 2023-11-04 11:58 | PT.OTN ---
Current Diagnoses Other chronic pain (11/04/23) Sacrococcygeal disorders, not elsewhere classified (11/04/23) Physical Therapy Treatment Note PT-OP-A Visit Information Start: 10/19/23 09:47 Freq: Status: Active Protocol: Document 11/04/23 09:50 NM (Rec: 11/04/23 10:31 NM [id number]) Out-Patient Physical Therapy Visit Information Visit Information Visit Type Treatment Note Visit Start Time 09:47 Visit Stop Time 10:30 Total Visit Minutes 43 Visit Number 4 Evaluation Information Evaluation Date 10/19/23 Precautions Precautions (due March) PT-OP-B Current Condition Start: 10/19/23 09:47 Freq: Status: Active Protocol: Document 10/19/23 16:02 NM (Rec: 10/19/23 16:34 NM [id number]) Current Condition History of Current Condition Onset Date 08/2023 Current Complaints SIJ pain, low back discomfort History of Current Condition Pt presents to clinic with B SIJ pain. She is , and this is her fourth child. She has had PT before for SIJ pain during a different ; however, she states that it was not helpful. Pt reports that she is experiencing tightness in her piriformis in addition to B posterolateral hip pain. She has been rolling out her piriformis muscles with a foam roller. She participates in yoga/pilates normally, but she has not been able to participate recently due to SIJ pain. She has pain with any stance position where her legs are not together under her ROBERTO, bending over, and walking. She has been exercising in a deep pool to help offload her joints, which is reports is helpful overall but not for SIJ pain. Treatment Goals Patient/Caregiver Goals Decrease SIJ pain, feel more stable Prior Functional Status Baseline Function- ADL's Independent Baseline Function- Mobility Independent Baseline Function- Gait Able to walk miles without pain Current Functional Impairments (Reported) Functional Limitations- Mobility/Gait Unable to walk >15 min due to pain PT-OP-C Subjective Start: 10/19/23 09:47 Freq: Status: Active Protocol: Document 11/04/23 09:50 NM (Rec: 11/04/23 10:31 NM [id number]) OP-PT Subjective Patient Comments Patient Comments Pt presents with 2/10 R SIJ pain. She reports that her piriformis muscle has not been spasming as badly the past two days. She has been more aware of not constantly yesenia her glutes for stability, which she thinks is contributing to the improvement. She has also been drinking an electrolyte drink periodically. Pt reports compliance with HEP. Patient Reported Progress Improving PT-OP-D Balance Start: 10/19/23 09:47 Freq: Status: Active Protocol: Document 10/19/23 16:02 NM (Rec: 10/19/23 16:34 NM [id number]) Balance Tests Single Limb Standing Single Limb- Right 28 sec (no pain reported) Single Limb- Left 23 sec (no pain reported) PT-OP-E Functional Tests Start: 10/19/23 09:47 Freq: Status: Active Protocol: Document 10/19/23 16:02 NM (Rec: 10/19/23 16:34 NM [id number]) Functional Tests Squat Test Score 1x Comments L weight shift, painful PT-OP-F Manual Assessment Start: 10/19/23 09:47 Freq: Status: Active Protocol: Document 10/19/23 16:02 NM (Rec: 10/19/23 16:34 NM [id number]) Manual Assessments Soft Tissue Assessment Soft Tissue Mobility Assessment Soft tissue restrictions of piriformis, hip flexors Joint Mobility Assessment Joint Mobility Assessment Limited hip flex, IR bilaterally. SIJ is neutral, no noted elevations or depressions at sacral bases or ILAs. P-A springing (grade III) of 6 points along sacral base, ILAs, joint line are negative, do not provoke symptomatic pain. PT-OP-G Mobility & Gait Start: 10/19/23 09:47 Freq: Status: Active Protocol: Document 10/19/23 16:02 NM (Rec: 10/19/23 16:34 NM [id number]) OP Gait Assessment Gait Deviations General Gait Pattern Antalgic Factors Limiting Gait Function Factors Limiting Gait Function Decreased Activity Tolerance, Limited Range of Motion,Pain PT-OP-H Neuro Start: 10/19/23 09:47 Freq: Status: Active Protocol: Document 10/19/23 16:02 NM (Rec: 10/19/23 16:34 NM [id number]) Sensation Evaluation Gross Sensation Gross Sensation WNL Comments Summary Comments Intact BLE and lumbar spine to light touch sensation PT-OP-J Posture/Palpation/Skin Start: 10/19/23 09:47 Freq: Status: Active Protocol: Document 10/19/23 16:02 NM (Rec: 10/19/23 16:34 NM [id number]) Posture Evaluation Position Standing Evaluation View posterior, lateral Head/C-Spine Posture Neutral Position L-Spine Posture Increased Lordosis Pelvis Posture Anteriorly Tilted Weight Distribution Weight Shifted Anterior Hip Posture (L) Externally Rotated,(R) Externally Rotated Knee Posture (L) Genu Valgus,(R) Genu Valgus Palpation Assessment Location Piriformis Palpation Location bilaterally Palpation Findings Spasm,Tenderness Palpation Details Tender to palpation, limits hip motion. PT-OP-K Range of Motion Start: 10/19/23 09:47 Freq: Status: Active Protocol: Document 10/19/23 16:02 NM (Rec: 10/19/23 16:34 NM [id number]) Lumbar Spine Range of Motion Lumbar Spine Active Percentage Testing Position Standing Flexion 50 Extension 100 Lateral Flexion Left 100 Lateral Flexion Right 50 ROM Limitations Soft Tissue Tightness,Pain Comments Flexion and lateral flexion reproduces R SIJ pain L lateral flex to knee joint line, R lateral flex to mid- thigh Hip Goniometric Range of Motion Hip Left Testing Position supine and sitting Flexion w/Knee Flexed 100 Abduction 30 Internal Rotation 29 External Rotation 15 Right Testing Position supine and sitting Flexion w/Knee Flexed 100 Abduction 30 Internal Rotation 27 External Rotation 27 Comments Painful hip IR Hip ROM Limitations Hip ROM Limitations Soft Tissue Tightness PT-OP-L Special Tests Start: 10/19/23 09:47 Freq: Status: Active Protocol: Document 10/19/23 16:02 NM (Rec: 10/19/23 16:34 NM [id number]) Special Tests Lumbar Spine Special Tests Posterior Gap/Distraction Test Results positive B Comments for SIJ Thigh Thrust Test Results positive R Comments for SIJ Gaenslen's Test Test Results positive B Comments for SIJ Anterior Gap/Distraction Test Results negative B Comments compression/distraction B ASIS (for SIJ) Active Straight Leg Raise Test Results positive Comments painful active SLR, no pain with B ASIS stabilization PT-OP-M Strength Start: 10/19/23 09:47 Freq: Status: Active Protocol: Document 10/19/23 16:02 NM (Rec: 10/19/23 16:34 NM [id number]) Hip Strength Hip Manual Muscle Testing Left Flexion (L2) 4 Good Abduction 4 Good Adduction 5 Normal External Rotation 4 Good Internal Rotation 4 Good Right Flexion (L2) 4- Good- Abduction 4 Good Adduction 5 Normal External Rotation 4- Good- Internal Rotation 4 Good Comments Pain with flex and IR Knee Strength Knee Manual Muscle Testing Left Flexion (S2) 5 Normal Extension (L3) 5 Normal Right Flexion (S2) 4- Good- Extension (L3) 5 Normal Comments Pain with knee flex PT-OP-Q Treatments Start: 10/19/23 09:47 Freq: Status: Active Protocol: Document 11/04/23 09:50 NM (Rec: 11/04/23 10:31 NM [id number]) Therapeutic Exercises Prone Exercises Child's Pose Prone Exercise Name Quad rock back with feet together, knees apart Side bilateral Reps/Minutes 10x10 Comments for low back stretch and hip mobility Sidelying Exercises Clam shells Sidelying Exercise Name to promote hip ER Side bilateral Resistance [place] green lvl 3 tb Equipment Used around knees Reps/Minutes 1x15x2 Comments cues for no hip rotation, small isometric Sitting Exercises Hip ER stretch Sitting Exercise Name to relax piriformis Side bilateral Reps/Minutes 2x30 Comments able to tolerate in seated; instructed in supine as wel TA + january Sitting Exercise Name TA activation + mini march Side bilateral Reps/Minutes 2x10x2 ea Comments cues for TA contraction Hip IR with ADD Side bilateral Resistance green tb ([place] green) Equipment Used gold ball between knees Reps/Minutes 2x15 ea Comments performed ea side individually for max IR range Standing Exercises Hamstring stretch Side bilateral Equipment Used stairs, 6 step with heel propped on top, toe pointed up Reps/Minutes 2x30 Comments cues for execution; reports relief Calf stretch Side bilateral Equipment Used stairs, foot against 6 step Reps/Minutes 2x30 Comments reports relief Manual Therapy Treatment Soft Tissue Mobilization Glutes Body Location B glutes, hamstrings, piriformis Mobilization Type Instrument Assisted,Myofascial Release,Oscillations,Rolling, Sustained Pressure,Other Intensity/Depth Moderate Body Position Prone Comments B piriformis (R>L) and other external rotators, glute , hamstrings. Decreased R piriformis spasming with sustained pressure compared to previous sessions. Increased hamstring tenderness and tightness reported. Reports relief with mobilization. Prone on pillow Lumbar Spine Body Location B paraspinals Mobilization Type Rolling,Strumming,Sustained Pressure Intensity/Depth Superficial Body Position Prone Comments Erector spinae, QLs demo soft tissue restriction, relaxed with sustained pressure and strumming. Pt reports relief in low back Joint Mobilizations SI Joint Joint bilateral Direction P-A Grade II Body Position Prone Reps/Duration 30x4 Comments Gentle grade II mob on B superior bases for pain relief . Pt reports relief with gentle mobilization. Pt prone on pillow Self-Care/Home Management Treatment Education Patient Education Body Mechanics,Joint Protection,Pain Management, Posture Other Education Declined HO, but demonstrated staggered stance positioning to decrease glute overactivity and excessive anterior tilt PT-OP-T Assessment and Plan Start: 10/19/23 09:47 Freq: Status: Active Protocol: Document 11/04/23 09:50 NM (Rec: 11/04/23 10:31 NM [id number]) Physical Therapy Assessment Goals Nine Impairment function, gait Weight And Balance Control Agent Goal (LTG) Pt will be able to walk for at leat 15 min with 2/10 pain or less to demo improved SI joint stability and activity tolerance. LTG Duration 8 weeks Eight Impairment ROM Senior Living Goal (LTG) Pt will improve L hip ER AROM by at least 10 deg to be comparable to RLE for increased hip ROM for . LTG Duration 8 weeks Seven Impairment ROM Senior Living Goal (LTG) Pt will improve BLE hip flex ROM to > 100 deg in order to demo decreased hip flexor tightness for improved posture during . LTG Duration 8 weeks Six Impairment strength Short Term Goal (STG) Pt will improve BLE hip strength to at least 4/5 with pain <2/10 for improved stability and activity tolerance for ADLs. STG Duration 4 weeks Senior Living Goal (LTG) Pt will improve BLE hip strength to at least 4+/5 with pain of <2/10 for improved stability and activity tolerance for ADLs. LTG Duration 8 weeks Five Impairment HEP Senior Living Goal (LTG) Pt will be independent with HEP at least 5 days/wk in order to maximize gains made during PT and to promote independence. LTG Duration 8 weeks Four Impairment education, posture Senior Living Goal (LTG) Pt will be educated on posture to decrease -related lordosis, improve trunk stabilization and to decrease pain during standing/walking for improved QOL. LTG Duration 8 weeks Three Impairment function Weight And Balance Control Agent Goal (LTG) Pt will demonstrate safe lifting mechanics and joint protection strategies while lifting and moving objects, such as a baby carrier, in 3/5 trials. LTG Duration 8 weeks Two Impairment function, core stabilization Weight And Balance Control Agent Goal (LTG) Pt will be able to isolate her core and demo TA activation in at least 3/5 trials during for improved stabilization and body mechanics during ADLs. LTG Duration 8 weeks One Impairment function Impairment Oswestry score 22/50 Short Term Goal (STG) Pt will decrease Oswestry score by at least 6 points in order to demo improved activity tolerance and QOL. STG Duration 4 weeks Senior Living Goal (LTG) Pt will decrease Oswestry score by at least 12 points (1 MCID) in order to demo improved activity tolerance and QOL. LTG Duration 8 weeks Assessment Summary Assessment Pt reports improvement in R SIJ pain compared to previous sessions. Continued with hip add and IR strengthening, and lumbar spine/hip mobility. Pt demos improved tolerance with hip IR and add exercises, able to perform with greater ROM today than last session. Added quadruped rock backs with feet apart, clams to promote hip ER, and TA activation with marching. Pt requries min cues for TA activation, demos good contraction. Educated on utilizing TA for stabilization vs glutes in standing. Manual tmt targeting decreasing piriformis, hamstrings, and lumbar spine soft tissue restrictions, decrease symptoms. Pt reports symptom relief after mobilization. PT educated pt on strategies to decrease constant glute contraction, including staggered stance and placing one leg in an elevated position. Pt would benefit from skilled PT to address symptom reduction, postural re -education, spine and hip mobility/strength in order to manage symptoms and improve CLOF. Physical Therapy Plan Frequency and Duration Frequency of Treatment 1-2x/wk Duration of treatment (weeks) 8 Plan of Care Start Date 10/19/23 Plan of Care End Date 12/21/23 Therapeutic Interventions Therapeutic Interventions Balance Training,Home Exercise Program,Joint Mobilizations, Manual Therapy,Neuromuscular Re-education,Patient/Caregiver Education,Self-Care/Home Management,Soft Tissue Mobilization,Taping, Therapeutic Activities, Therapeutic Exercises Next Visit Focus/Plan Next Note Type Treatment Note Next Visit Plan Gentle SIJ exercises, TA activation; education: posture , stabilization, body mechanics Hip ADD with bridge, any ADD exercises. Next session: Quad + IR (band), Quad + TA + arm bird dog, ADD + shldr flex stretch, hip flex stretch, staggered stance (hip hinge)
--- NOTE | 2023-11-23 16:06 | PT.OTN ---
Current Diagnoses Other chronic pain (11/23/23) Sacrococcygeal disorders, not elsewhere classified (11/23/23) Physical Therapy Treatment Note PT-OP-A Visit Information Start: 10/19/23 09:47 Freq: Status: Active Protocol: Document 11/23/23 13:54 NM (Rec: 11/23/23 14:30 NM [id number]) Out-Patient Physical Therapy Visit Information Visit Information Visit Type Progress Note Visit Note 12/08 visits in 2023 Visit Start Time 13:50 Visit Stop Time 14:30 Total Visit Minutes 40 Visit Number 5 Evaluation Information Evaluation Date 10/19/23 PT-OP-B Current Condition Start: 10/19/23 09:47 Freq: Status: Active Protocol: Document 10/19/23 16:02 NM (Rec: 10/19/23 16:34 NM [id number]) Current Condition History of Current Condition Onset Date 08/2023 Current Complaints SIJ pain, low back discomfort History of Current Condition Pt presents to clinic with B SIJ pain. She is , and this is her fourth child. She has had PT before for SIJ pain during a different ; however, she states that it was not helpful. Pt reports that she is experiencing tightness in her piriformis in addition to B posterolateral hip pain. She has been rolling out her piriformis muscles with a foam roller. She participates in yoga/pilates normally, but she has not been able to participate recently due to SIJ pain. She has pain with any stance position where her legs are not together under her ROBERTO, bending over, and walking. She has been exercising in a deep pool to help offload her joints, which is reports is helpful overall but not for SIJ pain. Treatment Goals Patient/Caregiver Goals Decrease SIJ pain, feel more stable Prior Functional Status Baseline Function- ADL's Independent Baseline Function- Mobility Independent Baseline Function- Gait Able to walk miles without pain Current Functional Impairments (Reported) Functional Limitations- Mobility/Gait Unable to walk >15 min due to pain PT-OP-C Subjective Start: 10/19/23 09:47 Freq: Status: Active Protocol: Document 11/23/23 13:54 NM (Rec: 11/23/23 14:30 NM [id number]) OP-PT Subjective Patient Comments Patient Comments Pt reports 0/10 B SIJ pain. She is concerned about pelvic floor more than SIJ pain. She is still wearing her SI belt, which helps. Has been compliant with HEP, mike stretching PT-OP-D Balance Start: 10/19/23 09:47 Freq: Status: Active Protocol: Document 10/19/23 16:02 NM (Rec: 10/19/23 16:34 NM [id number]) Balance Tests Single Limb Standing Single Limb- Right 28 sec (no pain reported) Single Limb- Left 23 sec (no pain reported) PT-OP-E Functional Tests Start: 10/19/23 09:47 Freq: Status: Active Protocol: Document 10/19/23 16:02 NM (Rec: 10/19/23 16:34 NM [id number]) Functional Tests Squat Test Score 1x Comments L weight shift, painful PT-OP-F Manual Assessment Start: 10/19/23 09:47 Freq: Status: Active Protocol: Document 10/19/23 16:02 NM (Rec: 10/19/23 16:34 NM [id number]) Manual Assessments Soft Tissue Assessment Soft Tissue Mobility Assessment Soft tissue restrictions of piriformis, hip flexors Joint Mobility Assessment Joint Mobility Assessment Limited hip flex, IR bilaterally. SIJ is neutral, no noted elevations or depressions at sacral bases or ILAs. P-A springing (grade III) of 6 points along sacral base, ILAs, joint line are negative, do not provoke symptomatic pain. PT-OP-G Mobility & Gait Start: 10/19/23 09:47 Freq: Status: Active Protocol: Document 10/19/23 16:02 NM (Rec: 10/19/23 16:34 NM [id number]) OP Gait Assessment Gait Deviations General Gait Pattern Antalgic Factors Limiting Gait Function Factors Limiting Gait Function Decreased Activity Tolerance, Limited Range of Motion,Pain PT-OP-H Neuro Start: 10/19/23 09:47 Freq: Status: Active Protocol: Document 10/19/23 16:02 NM (Rec: 10/19/23 16:34 NM [id number]) Sensation Evaluation Gross Sensation Gross Sensation WNL Comments Summary Comments Intact BLE and lumbar spine to light touch sensation PT-OP-J Posture/Palpation/Skin Start: 10/19/23 09:47 Freq: Status: Active Protocol: Document 10/19/23 16:02 NM (Rec: 10/19/23 16:34 NM [id number]) Posture Evaluation Position Standing Evaluation View posterior, lateral Head/C-Spine Posture Neutral Position L-Spine Posture Increased Lordosis Pelvis Posture Anteriorly Tilted Weight Distribution Weight Shifted Anterior Hip Posture (L) Externally Rotated,(R) Externally Rotated Knee Posture (L) Genu Valgus,(R) Genu Valgus Palpation Assessment Location Piriformis Palpation Location bilaterally Palpation Findings Spasm,Tenderness Palpation Details Tender to palpation, limits hip motion. PT-OP-K Range of Motion Start: 10/19/23 09:47 Freq: Status: Active Protocol: Document 10/19/23 16:02 NM (Rec: 10/19/23 16:34 NM [id number]) Lumbar Spine Range of Motion Lumbar Spine Active Percentage Testing Position Standing Flexion 50 Extension 100 Lateral Flexion Left 100 Lateral Flexion Right 50 ROM Limitations Soft Tissue Tightness,Pain Comments Flexion and lateral flexion reproduces R SIJ pain L lateral flex to knee joint line, R lateral flex to mid- thigh Hip Goniometric Range of Motion Hip Left Testing Position supine and sitting Flexion w/Knee Flexed 100 Abduction 30 Internal Rotation 29 External Rotation 15 Right Testing Position supine and sitting Flexion w/Knee Flexed 100 Abduction 30 Internal Rotation 27 External Rotation 27 Comments Painful hip IR Hip ROM Limitations Hip ROM Limitations Soft Tissue Tightness PT-OP-L Special Tests Start: 10/19/23 09:47 Freq: Status: Active Protocol: Document 10/19/23 16:02 NM (Rec: 10/19/23 16:34 NM [id number]) Special Tests Lumbar Spine Special Tests Posterior Gap/Distraction Test Results positive B Comments for SIJ Thigh Thrust Test Results positive R Comments for SIJ Gaenslen's Test Test Results positive B Comments for SIJ Anterior Gap/Distraction Test Results negative B Comments compression/distraction B ASIS (for SIJ) Active Straight Leg Raise Test Results positive Comments painful active SLR, no pain with B ASIS stabilization PT-OP-M Strength Start: 10/19/23 09:47 Freq: Status: Active Protocol: Document 10/19/23 16:02 NM (Rec: 10/19/23 16:34 NM [id number]) Hip Strength Hip Manual Muscle Testing Left Flexion (L2) 4 Good Abduction 4 Good Adduction 5 Normal External Rotation 4 Good Internal Rotation 4 Good Right Flexion (L2) 4- Good- Abduction 4 Good Adduction 5 Normal External Rotation 4- Good- Internal Rotation 4 Good Comments Pain with flex and IR Knee Strength Knee Manual Muscle Testing Left Flexion (S2) 5 Normal Extension (L3) 5 Normal Right Flexion (S2) 4- Good- Extension (L3) 5 Normal Comments Pain with knee flex PT-OP-Q Treatments Start: 10/19/23 09:47 Freq: Status: Active Protocol: Document 11/23/23 13:54 NM (Rec: 11/23/23 14:30 NM [id number]) Therapeutic Exercises Prone Exercises Child's Pose Prone Exercise Name Quad rock back with feet together, knees apart Side bilateral Reps/Minutes 10x10 Comments for low back stretch and hip mobility Standing Exercises Hip flexor stretch Standing Exercise Name better tolerance than seated Side bilateral Reps/Minutes 1x30 ea Comments cue for ppt RDL Standing Exercise Name staggered stance Side bilateral Resistance 2# ball Reps/Minutes 1x5 Comments trialed but d/c due to low back pain Hamstring stretch Side bilateral Equipment Used stairs, 6 step with heel propped on top, toe pointed up Reps/Minutes 2x30 Comments cues for execution; reports relief Squat Standing Exercise Name isometric hold Side bilateral Equipment Used green SB behind back Reps/Minutes 10x5 Comments able to perform increased depth w/o pain Calf stretch Side bilateral Equipment Used stairs, foot against 6 step Reps/Minutes 2x30 Comments reports relief Other Exercises quadruped hip IR Side bilateral Resistance confederated [place] green band around ankles Reps/Minutes 1x15 Comments cues for TA contraction quadruped bird dog Other Exercise Name UE only Side bilateral Reps/Minutes 1x10 ea hand Comments with TA contraction for good pelvic floor control Quadruped hip ext Other Exercise Name trialed Side bilateral Equipment Used toe starting on table, then slight lift Reps/Minutes 1x10 ea leg Comments with TA contraction PT-OP-T Assessment and Plan Start: 10/19/23 09:47 Freq: Status: Active Protocol: Document 11/23/23 13:54 NM (Rec: 11/23/23 14:30 NM [id number]) Physical Therapy Assessment Goals Nine Impairment function, gait Organic Section Technical Lead Goal (LTG) Pt will be able to walk for at leat 15 min with 2/10 pain or less to demo improved SI joint stability and activity tolerance. 11/23/23: 15 min max, no pain; discomfort LTG Duration 8 weeks PROGRESSING Eight Impairment ROM Residential Goal (LTG) Pt will improve L hip ER AROM by at least 10 deg to be comparable to RLE for increased hip ROM for . 11/23/23: L hip ER 20 deg, R hip ER 30 deg LTG Duration 8 weeks Seven Impairment ROM Organic Section Technical Lead Goal (LTG) Pt will improve BLE hip flex ROM to > 100 deg in order to demo decreased hip flexor tightness for improved posture during . 11/23/23: R hip flex AROM 115 deg, L hip flex 110 deg LTG Duration 8 weeks MET Six Impairment strength Short Term Goal (STG) Pt will improve BLE hip strength to at least 4/5 with pain <2/10 for improved stability and activity tolerance for ADLs. 11/23/23: 4+/5 BLE global hip strength, no pain reported STG Duration 4 weeks Residential Goal (LTG) Pt will improve BLE hip strength to at least 4+/5 with pain of <2/10 for improved stability and activity tolerance for ADLs. 11/23/23: 4+/5 BLE global hip strength, no pain reported LTG Duration 8 weeks MET, PROGRESSING Five Impairment HEP Residential Goal (LTG) Pt will be independent with HEP at least 5 days/wk in order to maximize gains made during PT and to promote independence. 11/23/23: pt reports performing exercises x5-7 days/wk LTG Duration 8 weeks MET Four Impairment education, posture Residential Goal (LTG) Pt will be educated on posture to decrease -related lordosis, improve trunk stabilization and to decrease pain during standing/walking for improved QOL. 11/23/23: progressing/ongoing LTG Duration 8 weeks Three Impairment function Residential Goal (LTG) Pt will demonstrate safe lifting mechanics and joint protection strategies while lifting and moving objects, such as a baby carrier, in 3/5 trials. 11/23/23: progressing LTG Duration 8 weeks Two Impairment function, core stabilization Residential Goal (LTG) Pt will be able to isolate her core and demo TA activation in at least 3/5 trials during for improved stabilization and body mechanics during ADLs. 11/23/23: progressing LTG Duration 8 weeks One Impairment function Impairment Oswestry score 22/50 Short Term Goal (STG) Pt will decrease Oswestry score by at least 6 points in order to demo improved activity tolerance and QOL. 11/23/23: 17/50 STG Duration 4 weeks PROGRESSING Residential Goal (LTG) Pt will decrease Oswestry score by at least 12 points (1 MCID) in order to demo improved activity tolerance and QOL. LTG Duration 8 weeks Progress Towards Goals Progress Towards Goals Progressing Toward Goals,Goals Met Assessment Summary Assessment Pt presents with improved symptoms today. Trialed RDL but reproduced low back pain. Continued with hip IR strengthening and TA activation using quadruped in order to strengthen pelvic floor and promote improved hip mobility. Pt requires minimal cues for transverse abdominis activation during static quadruped, but demos difficulty with coordinating activities while maintaining transverse abdominis activation in this position. Initiated UE quadruped bird dogs and small range quadruped hip extension to continue with BLE strengthening with concurrent core activation. Progress as tolerated to standing activities. Demos increased depth with squat hold today. HEP added: quadruped hip internal rotation, quadruped UE only bird dog. Pt would benefit from further body mechanics education during lifting and carrying, along with adding core stabilization in future sessions. Pt has been seen x4 since IE. She is progressing toward her goals and has met 2-3 LTG; she is progressing toward the remaining goals. Pt demos improvement in her B SI joint pain management. She will be seen 1x/wk in the future. Pt would benefit from skilled PT to address BLE strengthening and body mechanics, coordinating core and pelvic floor in order to continue to minimize SIJ pain symptoms and improve activity tolerance. Physical Therapy Plan Frequency and Duration Frequency of Treatment 1-2x/wk Duration of treatment (weeks) 8 Plan of Care Start Date 10/19/23 Plan of Care End Date 12/21/23 Therapeutic Interventions Therapeutic Interventions Balance Training,Home Exercise Program,Joint Mobilizations, Manual Therapy,Neuromuscular Re-education,Patient/Caregiver Education,Self-Care/Home Management,Soft Tissue Mobilization,Taping, Therapeutic Activities, Therapeutic Exercises Next Visit Focus/Plan Next Note Type Treatment Note Next Visit Plan Next session: SIJ exercises, TA activation; education: posture, stabilization, body mechanics Hip ADD with bridge, any ADD exercises. Next session: Quad + IR (band), Quad + TA + arm bird dog, ADD + shldr flex stretch, hip flex stretch, staggered stance (hip hinge)
--- NOTE | 2023-12-21 10:00 | PT.OTN ---
Current Diagnoses Other chronic pain (12/21/23) Sacrococcygeal disorders, not elsewhere classified (12/21/23) Physical Therapy Treatment Note PT-OP-A Visit Information Start: 10/19/23 09:47 Freq: Status: Active Protocol: Document 12/21/23 09:07 [facility] (Rec: 12/21/23 09:54 [facility] [id number]) Out-Patient Physical Therapy Visit Information Visit Information Visit Type Treatment Note Visit Start Time 09:05 Visit Stop Time 09:50 Visit Number 7 PT-OP-B Current Condition Start: 10/19/23 09:47 Freq: Status: Active Protocol: Document 10/19/23 16:02 NM (Rec: 10/19/23 16:34 NM [id number]) Current Condition History of Current Condition Onset Date 08/2023 Current Complaints SIJ pain, low back discomfort History of Current Condition Pt presents to clinic with B SIJ pain. She is , and this is her fourth child. She has had PT before for SIJ pain during a different ; however, she states that it was not helpful. Pt reports that she is experiencing tightness in her piriformis in addition to B posterolateral hip pain. She has been rolling out her piriformis muscles with a foam roller. She participates in yoga/pilates normally, but she has not been able to participate recently due to SIJ pain. She has pain with any stance position where her legs are not together under her ROBERTO, bending over, and walking. She has been exercising in a deep pool to help offload her joints, which is reports is helpful overall but not for SIJ pain. Treatment Goals Patient/Caregiver Goals Decrease SIJ pain, feel more stable Prior Functional Status Baseline Function- ADL's Independent Baseline Function- Mobility Independent Baseline Function- Gait Able to walk miles without pain Current Functional Impairments (Reported) Functional Limitations- Mobility/Gait Unable to walk >15 min due to pain PT-OP-C Subjective Start: 10/19/23 09:47 Freq: Status: Active Protocol: Document 12/21/23 09:07 [facility] (Rec: 12/21/23 09:54 [facility] [id number]) OP-PT Subjective Patient Comments Patient Comments pt notes she is not having pain and she is getting along without her SI belt, she is feeling like she has to pee all the time when she wears it . She is doing her stretches, doing foam rolling, she is trying to lean forward with voiding to fully emptying PT-OP-D Balance Start: 10/19/23 09:47 Freq: Status: Active Protocol: Document 10/19/23 16:02 NM (Rec: 10/19/23 16:34 NM [id number]) Balance Tests Single Limb Standing Single Limb- Right 28 sec (no pain reported) Single Limb- Left 23 sec (no pain reported) PT-OP-E Functional Tests Start: 10/19/23 09:47 Freq: Status: Active Protocol: Document 10/19/23 16:02 NM (Rec: 10/19/23 16:34 NM [id number]) Functional Tests Squat Test Score 1x Comments L weight shift, painful PT-OP-F Manual Assessment Start: 10/19/23 09:47 Freq: Status: Active Protocol: Document 10/19/23 16:02 NM (Rec: 10/19/23 16:34 NM [id number]) Manual Assessments Soft Tissue Assessment Soft Tissue Mobility Assessment Soft tissue restrictions of piriformis, hip flexors Joint Mobility Assessment Joint Mobility Assessment Limited hip flex, IR bilaterally. SIJ is neutral, no noted elevations or depressions at sacral bases or ILAs. P-A springing (grade III) of 6 points along sacral base, ILAs, joint line are negative, do not provoke symptomatic pain. PT-OP-G Mobility & Gait Start: 10/19/23 09:47 Freq: Status: Active Protocol: Document 10/19/23 16:02 NM (Rec: 10/19/23 16:34 NM [id number]) OP Gait Assessment Gait Deviations General Gait Pattern Antalgic Factors Limiting Gait Function Factors Limiting Gait Function Decreased Activity Tolerance, Limited Range of Motion,Pain PT-OP-H Neuro Start: 10/19/23 09:47 Freq: Status: Active Protocol: Document 10/19/23 16:02 NM (Rec: 10/19/23 16:34 NM [id number]) Sensation Evaluation Gross Sensation Gross Sensation WNL Comments Summary Comments Intact BLE and lumbar spine to light touch sensation PT-OP-J Posture/Palpation/Skin Start: 10/19/23 09:47 Freq: Status: Active Protocol: Document 10/19/23 16:02 NM (Rec: 10/19/23 16:34 NM [id number]) Posture Evaluation Position Standing Evaluation View posterior, lateral Head/C-Spine Posture Neutral Position L-Spine Posture Increased Lordosis Pelvis Posture Anteriorly Tilted Weight Distribution Weight Shifted Anterior Hip Posture (L) Externally Rotated,(R) Externally Rotated Knee Posture (L) Genu Valgus,(R) Genu Valgus Palpation Assessment Location Piriformis Palpation Location bilaterally Palpation Findings Spasm,Tenderness Palpation Details Tender to palpation, limits hip motion. PT-OP-K Range of Motion Start: 10/19/23 09:47 Freq: Status: Active Protocol: Document 10/19/23 16:02 NM (Rec: 10/19/23 16:34 NM [id number]) Lumbar Spine Range of Motion Lumbar Spine Active Percentage Testing Position Standing Flexion 50 Extension 100 Lateral Flexion Left 100 Lateral Flexion Right 50 ROM Limitations Soft Tissue Tightness,Pain Comments Flexion and lateral flexion reproduces R SIJ pain L lateral flex to knee joint line, R lateral flex to mid- thigh Hip Goniometric Range of Motion Hip Left Testing Position supine and sitting Flexion w/Knee Flexed 100 Abduction 30 Internal Rotation 29 External Rotation 15 Right Testing Position supine and sitting Flexion w/Knee Flexed 100 Abduction 30 Internal Rotation 27 External Rotation 27 Comments Painful hip IR Hip ROM Limitations Hip ROM Limitations Soft Tissue Tightness PT-OP-L Special Tests Start: 10/19/23 09:47 Freq: Status: Active Protocol: Document 10/19/23 16:02 NM (Rec: 10/19/23 16:34 NM [id number]) Special Tests Lumbar Spine Special Tests Posterior Gap/Distraction Test Results positive B Comments for SIJ Thigh Thrust Test Results positive R Comments for SIJ Gaenslen's Test Test Results positive B Comments for SIJ Anterior Gap/Distraction Test Results negative B Comments compression/distraction B ASIS (for SIJ) Active Straight Leg Raise Test Results positive Comments painful active SLR, no pain with B ASIS stabilization PT-OP-M Strength Start: 10/19/23 09:47 Freq: Status: Active Protocol: Document 10/19/23 16:02 NM (Rec: 10/19/23 16:34 NM [id number]) Hip Strength Hip Manual Muscle Testing Left Flexion (L2) 4 Good Abduction 4 Good Adduction 5 Normal External Rotation 4 Good Internal Rotation 4 Good Right Flexion (L2) 4- Good- Abduction 4 Good Adduction 5 Normal External Rotation 4- Good- Internal Rotation 4 Good Comments Pain with flex and IR Knee Strength Knee Manual Muscle Testing Left Flexion (S2) 5 Normal Extension (L3) 5 Normal Right Flexion (S2) 4- Good- Extension (L3) 5 Normal Comments Pain with knee flex PT-OP-Q Treatments Start: 10/19/23 09:47 Freq: Status: Active Protocol: Document 12/21/23 09:00 [facility] (Rec: 12/22/23 09:37 [facility] [id number]) Manual Therapy Treatment Soft Tissue Mobilization Glutes Body Location B glutes, hamstrings, piriformis Mobilization Type Instrument Assisted,Myofascial Release,Oscillations,Rolling, Sustained Pressure,Other Intensity/Depth Moderate Body Position Prone Comments B piriformis (R>L) and other external rotators, glute , hamstrings. Decreased R piriformis spasming with sustained pressure compared to previous sessions. Increased hamstring tenderness and tightness reported. Reports relief with mobilization. Prone on pillow Lumbar Spine Body Location B paraspinals Mobilization Type Rolling,Strumming,Sustained Pressure Intensity/Depth Superficial Body Position Prone Comments Erector spinae, QLs demo soft tissue restriction, relaxed with sustained pressure and strumming. Pt reports relief in low back Self-Care/Home Management Treatment Education Patient Education Body Mechanics,Joint Protection,Pain Management, Posture Other Education discussed HEP and pt is doing all her exercises for home PT-OP-T Assessment and Plan Start: 10/19/23 09:47 Freq: Status: Active Protocol: Document 12/21/23 09:00 [facility] (Rec: 12/22/23 09:37 [facility] [id number]) Physical Therapy Assessment Goals Nine Impairment function, gait Pathology Manager Goal (LTG) Pt will be able to walk for at leat 15 min with 2/10 pain or less to demo improved SI joint stability and activity tolerance. 11/23/23: 15 min max, no pain; discomfort LTG Duration 8 weeks PROGRESSING Eight Impairment ROM Pathology Manager Goal (LTG) Pt will improve L hip ER AROM by at least 10 deg to be comparable to RLE for increased hip ROM for . 11/23/23: L hip ER 20 deg, R hip ER 30 deg LTG Duration 8 weeks Seven Impairment ROM Pathology Manager Goal (LTG) Pt will improve BLE hip flex ROM to > 100 deg in order to demo decreased hip flexor tightness for improved posture during . 11/23/23: R hip flex AROM 115 deg, L hip flex 110 deg LTG Duration 8 weeks MET Five Impairment HEP Long-Term Goal (LTG) Pt will be independent with HEP at least 5 days/wk in order to maximize gains made during PT and to promote independence. 11/23/23: pt reports performing exercises x5-7 days/wk LTG Duration 8 weeks MET Four Impairment education, posture Long-Term Goal (LTG) Pt will be educated on posture to decrease -related lordosis, improve trunk stabilization and to decrease pain during standing/walking for improved QOL. 11/23/23: progressing/ongoing LTG Duration 8 weeks Three Impairment function Long-Term Goal (LTG) Pt will demonstrate safe lifting mechanics and joint protection strategies while lifting and moving objects, such as a baby carrier, in 3/5 trials. 11/23/23: progressing LTG Duration 8 weeks Two Impairment function, core stabilization Long-Term Goal (LTG) Pt will be able to isolate her core and demo TA activation in at least 3/5 trials during for improved stabilization and body mechanics during ADLs. 11/23/23: progressing LTG Duration 8 weeks One Impairment function Impairment Oswestry score 22/50 Short Term Goal (STG) Pt will decrease Oswestry score by at least 6 points in order to demo improved activity tolerance and QOL. 11/23/23: 17/50 STG Duration 4 weeks PROGRESSING Pathology Manager Goal (LTG) Pt will decrease Oswestry score by at least 12 points (1 MCID) in order to demo improved activity tolerance and QOL. Good progress LTG Duration 8 weeks Assessment Summary Assessment Overall yessy is doing much better with decreased c/o SI joint pain. She is feeling that she is able to manage her symptoms at this time and will continue with her HEP at home. SHe will be discharged at this time. Yessy may benefit from post care and she will obtain a new referral for this. Physical Therapy Plan Discharge Physical Therapy Discharge Reasons Goals Met Discharge Comments pt has done well with her home exercise program and pain levels are overall decreased. She will be discharged at this time
== END 2023-12-22 10:14 | disposition home or self-care (01) ==
LOC: PHYS 09:00
PROVIDERS: Family Provider Family Medicine; PCP Family Medicine; Referring Provider Family Medicine; Visit Provider Family Medicine
DX: M53.3 Sacrococcygeal disorders, not elsewhere classified (principal); G89.29 Other chronic pain
CPT/HCPCS: 97110; 97140; 97162; 97530; 97535

== ENCOUNTER → 2024-01-07 07:59 | Outpatient (CLI) | payer OTHER, MEDICAID, SELFPAY ==
[2024-01-07 10:13] LABS: Add Manual Diff / Slide Review NO; Basophils Absolute Auto 0 /uL (0-100); Basophils Percent Auto 0.2 % (0-2); Eosinophils Absolute Auto 100 /uL (0-450); Eosinophils Percent Auto 0.9 % (2-4); Hemoglobin 12.2 g/dL (12.0-16.0); Lymphocytes Absolute Auto 1000 /uL (1100-4500); Lymphocytes Percent Auto 12.5 % (25-40); Mean Corpuscular HGB Conc 34.8 % (30-36); Mean Corpuscular Hemoglobin 31.6 PG (26-34); Mean Corpuscular Volume 90.8 fL (80-100); Monocytes Absolute Auto 400 /uL (0-900); Monocytes Percent Auto 4.8 % (3-14); Neutrophils Absolute Auto 6600 /uL (1500-7000); Neutrophils Percent Auto 81.6 % (50-75); Platelet Count 216 X10^3/uL (150-400); Red Blood Cell Count 3.85 X10^6/uL (4.0-5.2); Red Cell Distribution Width 13.2 % (11.6-14.8); White Blood Cell Count 8.1 X10^3/uL (4.5-11.0)
[2024-01-07 10:35] LABS: GTT (PREG) 1 Hour PP 50gm Dose 100 mg/dL (76-139)
== END ==
PROVIDERS: Family Provider Family Medicine; PCP Family Medicine; Referring Provider Family Medicine; Visit Provider Family Medicine
DX: Z34.80 Encounter for supervision of other normal pregnancy, unspecified trimester (principal)
CPT/HCPCS: 36415; 82950; 85025; 86850

== ENCOUNTER → 2024-02-08 12:36 | Outpatient (CLI) | payer OTHER, MEDICAID, SELFPAY ==
--- NOTE | 2024-02-08 12:37 | DI.US.S_ITS ---
PROCEDURE: US PERIPH VENOUS LOW EXTREM LT INDICATIONS: clot in varicose vein TECHNIQUE: Real-time imaging, as well as color and pulse Doppler interrogation, were performed of the lower extremity deep veins from the inguinal ligament to the popliteal fossa, with documentation of the visualized calf veins. COMPARISON: None. FINDINGS: The common femoral, femoral, popliteal, and the visualized calf veins are normally compressible, and free of intraluminal thrombus. Color and pulse Doppler demonstrate normal phasic intraluminal flow. There is normal augmentation response to distal compression maneuver. Within the popliteal fossa, there is a patent superficial vein seen. IMPRESSION: No findings of lower extremity deep venous thrombosis. No findings of superficial venous thrombosis are detected. Dictated by: John Lopez M.D. on 02/08/2024 at 13:53 Approved by: John Lopez M.D. on 02/08/2024 at 13:54
== END ==
PROVIDERS: Family Provider Family Medicine; PCP Family Medicine; Referring Provider Family Medicine; Visit Provider Family Medicine
DX: O22.00 Varicose veins of lower extremity in pregnancy, unspecified trimester (principal)
CPT/HCPCS: 93971

== ENCOUNTER 2024-02-25 10:31 | Outpatient (CLI) | payer OTHER, MEDICAID, SELFPAY | END 2024-02-25 11:17 | disposition home or self-care (01) | LOC: LABOR 10:40 → OB 02-28 10:38 | PROVIDERS: Family Provider Family Medicine; PCP Family Medicine; Referring Provider Family Medicine; Visit Provider Family Medicine | DX: Z36.9 Encounter for antenatal screening, unspecified (principal) | CPT/HCPCS: 59025; G0378; G0379 ==

== ENCOUNTER 2024-03-09 13:03 | Outpatient (CLI) | payer OTHER, MEDICAID, SELFPAY ==
--- NOTE | 2024-03-09 13:17 | PM.OBTRLD ---
Visit Information Visit Information Date of evaluation: 03/09/24 Primary OB Provider: Daysi Shen Comments/Additional reasons for admission: 43yo at 36w4d here for NST for AMA. Pt is feeling her baby move regularly. No vaginal bleeding, LOF, contractions. 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, 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) current occupational exposures/hazards: No chadwick/congregational: Taoism special chadwick needs: No travel history: recent (domestic only) seatbelt use: always helmet use: Yes water heater temp set < 120 deg: Yes working smoke detector in home: Yes fire extinguisher in home: Yes carbon monox detector in home: Yes firearms in home: No do you feel safe at home: Yes Smoking Status: Never smoker alcohol intake: former (occasionally when not ) substance use type: does not use during the past year weight has: remained stable daily servings fruits/ve-4 caffeine: Yes (2 cups black tea) Type(s) of exercise: walking, bicycling and yoga frequency: 5-6 times per week Evaluation Evaluation Baseline heart rate: 130 Variability: Moderate (11-25) monitor accelerations: Present Monitor Decelerations: Absent Category of Tracing: Reactive Diagnosis, Plan/Disposition Final Diagnosis (1) AMA (advanced maternal age) multigravida 35+: Status: Acute Plan/Disposition Plan: 43yo at 36w4d here for NST for AMA. NST reactive. Continue weekly testing. OB Disposition: home
== END 2024-03-09 13:57 | disposition home or self-care (01) ==
LOC: LABOR 13:08 → OB 03-15 13:11
PROVIDERS: Family Provider Family Medicine; PCP Family Medicine; Referring Provider Family Medicine; Visit Provider Family Medicine
DX: O09.523 Supervision of elderly multigravida, third trimester (principal); Z3A.36 36 weeks gestation of pregnancy
CPT/HCPCS: 59025; 87653; G0378; G0379

== ENCOUNTER → 2024-03-09 14:34 | Outpatient (CLI) | payer OTHER, MEDICAID, SELFPAY ==
[2024-03-10 13:44] LABS: Strep Grp B PCR NEG for Grp B Strep
== END ==
PROVIDERS: Family Provider Family Medicine; PCP Family Medicine; Visit Provider Family Medicine
DX: Z34.80 Encounter for supervision of other normal pregnancy, unspecified trimester (principal)
CPT/HCPCS: 87653

== ENCOUNTER 2024-03-15 09:48 | Outpatient (CLI) | payer OTHER, MEDICAID, SELFPAY | END 2024-03-15 10:35 | disposition home or self-care (01) | LOC: LABOR 10:38 → OB 03-16 14:05 | PROVIDERS: Family Provider Family Medicine; PCP Family Medicine; Referring Provider Family Medicine; Visit Provider Family Medicine | DX: O09.523 Supervision of elderly multigravida, third trimester (principal); Z3A.37 37 weeks gestation of pregnancy | CPT/HCPCS: 59025; G0378; G0379 ==

== ENCOUNTER 2024-03-22 10:30 | Observation (INO) | payer OTHER, MEDICAID, SELFPAY ==
--- NOTE | 2024-03-22 10:48 | PM.OBTRLD ---
Visit Information Visit Information Date of evaluation: 03/22/24 Primary OB Provider: Dasyi Shen Comments/Additional reasons for admission: 43yo at 38w3d here for NST for AMA. Feeling baby move regularly. No LOF, vaginal bleeding, contractions. 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, 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) current occupational exposures/hazards: No chadwick/nondenominational: Yazdanism special chadwick needs: No travel history: recent (domestic only) seatbelt use: always helmet use: Yes water heater temp set < 120 deg: Yes working smoke detector in home: Yes fire extinguisher in home: Yes carbon monox detector in home: Yes firearms in home: No do you feel safe at home: Yes Smoking Status: Never smoker alcohol intake: former (occasionally when not ) substance use type: does not use during the past year weight has: remained stable daily servings fruits/ve-4 caffeine: Yes (2 cups black tea) Type(s) of exercise: walking, bicycling and yoga frequency: 5-6 times per week Evaluation Evaluation Baseline heart rate: 120 Variability: Moderate (11-25) monitor accelerations: Present Monitor Decelerations: Absent Category of Tracing: Reactive Diagnosis, Plan/Disposition Final Diagnosis (1) AMA (advanced maternal age) multigravida 35+: Status: Acute Plan/Disposition Plan: 43yo at 38w3d here for NST for AMA. NST reactive. Continue weekly NST. OB Disposition: home
== END 2024-03-22 11:15 | disposition home or self-care (01) ==
PROVIDERS: Admitting Provider Family Medicine; Family Provider Family Medicine; PCP Family Medicine; Referring Provider Family Medicine; Visit Provider Family Medicine
DX: O09.523 Supervision of elderly multigravida, third trimester (principal); Z3A.38 38 weeks gestation of pregnancy
CPT/HCPCS: 59025; G0378; G0379

== ENCOUNTER → 2024-03-23 08:53 | Outpatient (CLI) | payer OTHER, MEDICAID, SELFPAY ==
--- NOTE | 2024-03-23 08:54 | DI.US.S_ITS ---
PROCEDURE: US OB LIMITED INDICATIONS: SGA OUTSIDE/PRIOR DATING DATA: Last menstrual period (LMP): 06/27/2023. LMP-based estimated date of delivery (CATRACHITO): 04/02/2024. First dating scan (date and location): 08/19/2023. Estimated date of delivery (CATRACHITO) from first dating scan: 04/04/2024. TECHNIQUE: Real-time scanning was performed of the fetus, with image documentation and biometry. Endovaginal scanning: Not performed COMPARISON: [facility], , OB >= 14 WEEKS FETUS, 11/16/2023, 10:23. FINDINGS: A single living intrauterine gestation is present. Presentation: Vertex. Placenta: Placental position is fundal, without previa. Amniotic fluid index: 4.6 cm, normal range is 5-24 cm. (Previously 10.3 cm) Single deepest vertical pocket is 2.7 cm. heart rate: 132 beats per minute. Maternal cervical canal: Not well seen. Biometric measurements: BPD: 9.0 cm, 36 weeks 4 days HC: 33.3 cm, 38 weeks 0 days AC: 34.5 cm, 38 weeks 3 days FL: 7.2 cm, 36 weeks 5 days Clinically estimated gestational age: 38 weeks 4 days Estimated gestational age from today's scan: 37 weeks 3 days. weight: 3299 g, 45th percentile. IMPRESSION: 1. Klein living intrauterine at 37 weeks 3 days based on today's ultrasound. Vertex position. 2. Normal placenta. DERRICK 4.6 cm. Concerning for oligohydramnios. Comment: Findings were conveyed to office of Daysi Shen at time of dictation. Dictated by: Sam Mercado M.D. on 03/23/2024 at 12:17 Approved by: Sam Mercado M.D. on 03/23/2024 at 12:28
== END ==
PROVIDERS: Family Provider Family Medicine; PCP Family Medicine; Referring Provider Family Medicine; Visit Provider Family Medicine
DX: Z36.89 Encounter for other specified antenatal screening (principal); Z3A.37 37 weeks gestation of pregnancy
CPT/HCPCS: 76815

== ENCOUNTER 2024-03-24 06:57 | Inpatient (IN) | payer OTHER, MEDICAID, SELFPAY ==
--- NOTE | 2024-03-24 | DI.US.S_ITS ---
PROCEDURE: US OB BIOPHYSICAL PROFILE INDICATIONS: Nonreactive NST OUTSIDE/PRIOR DATING DATA: Last menstrual period (LMP): 06/27/2023 LMP-based estimated date of delivery (CATRACHITO): 04/02/2024 First dating scan (date and location): 08/19/2023 Estimated date of delivery (CATRACHITO) from first dating scan: 04/04/2024 TECHNIQUE: Real-time scanning was performed of the fetus, with image documentation. Biophysical profile was also obtained. Endovaginal scanning: Not performed. COMPARISON: [facility], OB LIMITED, 03/23/2024, 9:04. FINDINGS: General: A single living intrauterine gestation is present. Presentation: Vertex Placenta: Placental position is fundal. Amniotic fluid index: No significant fluid pocket. Single deepest vertical pocket is 0 cm. heart rate: 132 beats per minute. Maternal cervical canal: Not visualized Biophysical profile: Tone: 0 points. Movement: 2 points. Respiration: 2 points. Largest pocket of fluid: 0 points. IMPRESSION: 1. Single live intrauterine . 2. Biophysical profile score 4 of 8 (no points for tone or largest fluid pocket). 3. Oligohydramnios. Concordant preliminary findings were conveyed to the ordering provider, Akilah FULTON, by the signs and displays sales representative on 03/24/2024 at 8:10 AM. Approved by: Juice Ortiz M.D. on 03/24/2024 at 8:37
--- NOTE | 2024-03-24 08:43 | P.HPOB_ITS ---
OB HPI Date/Time Date of admission: 03/24/24 Date Patient Seen: 03/24/24 Time Patient Seen: 08:43 History of Present Condition Chief complaint: nst CATRACHITO Calculator 2 Estimated Delivery Date Method Current WG Current Estimate 04/02/24 Manual 38w 5d Final CATRACHITO - LALITHA Other Estimates 04/02/24 LMP (Certain) 38w 5d 04/04/24 Ultrasound #1 38w 3d Estimated Gestational Age (weeks): 38w5d : 4 Para: 3 Narrative: 43yo at 38w5d here for decreased movement. Pt was seen in L&D triage this morning due to decreased movement. Initially NST was nonreactive, and BPP was ordered. NST became reactive immediately prior to BPP, however BPP was 4/8 with points off for tone and anhydramnios. The pt had a growth u/s completed the day prior that showed oligohydramnios with an DERRICK of 4.6 and single deepest vertical pocket of 2.7. The pt denies any LOF. She had some bloody mucusy discharge last night. Mild intermittent contractions. The pts was otherwise uncomplicated other than AMA with negative cfDNA testing and reassuring testing until today. care: good care, initiated at week # (11) and pounds weight gain (50) Dating criteria OB: LMP confirmed by 1st trimester US Ultrasounds: normal 1st trimester US and normal mid trimester US Obstetrical complications: other (anhydramnios) Medical complications OB: none Preadmission Labs Last OB Lab Results: 2 Blood Type O Positive 03/24/24 10:49 Antibody Screen Negative 03/24/24 10:49 Hematocrit 38.4 % (36-46) 03/24/24 10:49 Hemoglobin 13.3 g/dL (12.0-16.0) 03/24/24 10:49 Hepatitis B Surface Antigen Negative s/c (NEGATIVE) 09/13/23 13 :57 Hepatitis C Antibody Negative s/c (NEGATIVE) 09/13/23 13:57 Rubella Antibody 44.3 IU/mL (>15) 09/13/23 13:57 Varicella-Zoster IgG Antibody 1569 index (Immune >165) 09/13/23 13:57 Glucose 1 Hour 100 mg/dL (76-139) 01/07/24 09:13 Group B Streptococcus (PCR) Neg for grp b strep 03/09/24 14:34 -: Urine: negative Genetic Screens: Cell-free DNA: Normal External Labs -: Urine: negative Prior (ies) Past Pregnancies Del. 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); precipitous delivery Evaluation Evaluation Baseline heart rate: 120 Variability: Moderate (11-25) monitor accelerations: Present Monitor Decelerations: Absent Status: Category l Dilation (cm): 3 Effacement (%): 30 Dilation: 3-4 cm Effacement: 0-30% station: -4 Position of cervix: mid Consistency: soft Muñoz score: 5 PFSH Medical History Long COVID Abdominal tumor renal anomaly LGA (large for gestational age) fetus Breast abscess Surgical History History of tonsillectomy (~1982) H/O abdominal surgery Family History Father Family estrangement Mother Smoker Grandmother Brain tumor Grandfather Prostate cancer Social History marital status: number of children: 3 household members: spouse lives independently: Yes caregiver/support person: Yes housing: house pets and animals: No 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, 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) current occupational exposures/hazards: No chadwick/church: [employer] special chadwick needs: No travel history: recent (domestic only) seatbelt use: always helmet use: Yes water heater temp set < 120 deg: Yes working smoke detector in home: Yes fire extinguisher in home: Yes carbon monox detector in home: Yes firearms in home: No do you feel safe at home: Yes Smoking Status: Never smoker alcohol intake: former (occasionally when not ) substance use type: does not use during the past year weight has: remained stable daily servings fruits/ve-4 caffeine: Yes (2 cups black tea) Type(s) of exercise: walking, bicycling and yoga frequency: 5-6 times per week Meds Home Medications and Allergies Home Medications Medication Instructions Recorded Confirmed Type L.acidop,casei,lactis,rham-B.lact,mega 1 cap PO DAILY 08/23/23 03/24/24 History 625 mg (10 billion cell) capsule (Advanced Probiotic) vitamin-ferrous sulfate 1 tab PO DAILY 08/23/23 03/24/24 History 27 mg iron-folic acid 0.8 mg tablet Double Electric Breast Pump and #1 ea 11/29/23 03/22/24 Rx Supplies Allergies Allergy/AdvReac Type Severity Reaction Status Date / Time benzoyl peroxide AdvReac Unknown RASH/BUMPS Unverified 03/22/24 09:48 [BENZOYL PEROXIDE] OB Exam Resp Effort & Inspection: normal respiratory effort Auscultation: clear to auscultation bilaterally Cardio Rate: regular rate Rhythm: regular rhythm Heart Sounds: S1 normal, S2 normal and no murmurs GI Inspection: non-distended Palpation: Yes soft and No tender Presentation: vertex Objective Labs 03/24/24 10:49 Assessment and Plan Assessment and Plan Assessment and Plan narrative: 43yo at 38w5d here for IOL seen in L&D this morning due to decreased movement, found to have anhydramnios and 4/8 BPP. FHT currently reassuring, safe for IOL. Muñoz score currently 5. GBS negative, Rh positive. - Start IOL with cervidil. - Continuous monitoring throughout entire labor, currently reassuring - Desires natural methods for pain control - GBS negative, no prophylaxis indicated
[2024-03-24 09:56] VITALS: BP 118/81
[2024-03-24] MEDS: LACTATED RINGERS 1,000 ML 100 ML IV (10:06)
[2024-03-24] MEDS: DINOPROSTONE VAG (CERVIDIL) 10 MG VAG (10:06)
[2024-03-24 11:08] LABS: Add Manual Diff / Slide Review NO; Basophils Absolute Auto 0 /uL (0-100); Basophils Percent Auto 0.5 % (0-2); Eosinophils Absolute Auto 100 /uL (0-450); Eosinophils Percent Auto 0.7 % (2-4); Hematocrit 38.4 % (36-46); Hemoglobin 13.3 g/dL (12.0-16.0); Lymphocytes Absolute Auto 1400 /uL (1100-4500); Lymphocytes Percent Auto 14.3 % (25-40); Mean Corpuscular HGB Conc 34.6 % (30-36); Mean Corpuscular Hemoglobin 31.8 PG (26-34); Mean Corpuscular Volume 91.8 fL (80-100); Monocytes Absolute Auto 600 /uL (0-900); Monocytes Percent Auto 5.9 % (3-14); Neutrophils Absolute Auto 7600 /uL (1500-7000); Neutrophils Percent Auto 78.6 % (50-75); Platelet Count 210 X10^3/uL (150-400); Red Blood Cell Count 4.18 X10^6/uL (4.0-5.2); Red Cell Distribution Width 13.4 % (11.6-14.8); White Blood Cell Count 9.6 X10^3/uL (4.5-11.0)
[2024-03-24] MEDS: ACETAMINOPHEN 325 MG TABLET 650 MG PO (15:52)
--- NOTE | 2024-03-24 23:25 | PM.OBPNLAB ---
Date/Time Date Patient Seen: 03/24/24 Time Patient Seen: 22:00 Pain Control Pain control: tolerating well Pelvic Exam Dilation (cm): 5 Effacement (%): 60 station: -2 Amniotic membrane status: Ruptured Comments: After informed consent, AROM performed with minimal clear fluid present Contractions Monitor mode: External Contraction frequency (min): 3 Contraction pattern: Regular Status status: Category l Heart Rate Baseline: 125 Monitor Accelerations: Present Monitor Decelerations: Absent Monitor Variability: Moderate Assessment and Plan Comments: 43yo at 38w5d here for IOL seen in L&D this morning due to decreased movement, found to have anhydramnios and 4/8 BPP. GBS negative, Rh positive. Pt with cervidil placed, then regular painful contractions with nipple stimulation. Minimal cervical change, however. AROM performed with clear fluid present. - Expectant management, anticipate - Continuous monitoring throughout entire labor, currently reassuring - Desires natural methods for pain control
--- NOTE | 2024-03-24 23:50 | PM.OBPRVD ---
Events: Oligohydramnios Labor & Delivery Delivery date: 03/24/24 Intrapartal Events: Precipitous Labor < 3 hours Cervical ripening method: per Cervidil protocol Induction method: AROM Delivery monitor: external FHT and external uterine Route of delivery: L&D Laceration Description: None Quantitative Blood Loss: 50 Anesthesia Type: None Complications: None Narrative: PROCEDURE: at 38w5d presented for IOL for anhydramnios and was admitted to Labor and Delivery. She received cervidil for induction. She then did nipple stimulation to promote more contractions. The patient progressed through the 1st stage over 30 minutes. AROM occured at 22:08 with clear fluid. Pain was controlled with natural methods. The patient progressed through the 2nd stage over 1 minute and delivered a viable male with APGARs 8/9 at 23:34 via without complications. The cord was cut and clamped after it stopped pulsating. It was noted to have 2 independent complete knots. The placenta delivered with gentle cord traction, and appeared complete. The perineum and vagina were inspected with no lacerations. Needle and sponge counts were correct.? The vagina was inspected and no items were left in situ. Yessy was doing well with Bronson, her and her , Kanu, at bedside. PREPROCEDURE DIAGNOSIS: Intrauterine at 38w5d AMA Anhydramnios GBS negative RH positive POSTPROCEDURE DIAGNOSIS: Intrauterine at 38w5d, delivered Same as preprocedure Baby 1: Infant gender: Male Presentation: vertex Position: Right Occiput Anterior Placenta delivery description: Spontaneous Cord Vessel Description: 3 Vessels and True Knot (x2) score (1 min): 8 score (5 min): 9 weight: 7 lb 0.242 oz Plan for aftercare: Routine care
[2024-03-25] MEDS: ACETAMINOPHEN 325 MG TABLET 650 MG PO ×3 (00:35→13:49)
[2024-03-25] MEDS: IBUPROFEN 600 MG TABLET PO ×3 (00:36→13:49)
[2024-03-25] MEDS: OXYCODONE IR 5 MG TABLET PO (07:47)
--- NOTE | 2024-03-25 16:45 | P.DS_ITS ---
Discharge Providers Provider Date of admission: 03/24/24 06:57 Discharge Date: 03/25/24 Primary care physician: Indu Bernardo MD Consults: 03/25/24 23:49 Consult to Prior Authorization Nurse Routine Comment: Discharge provider: Daysi Shen MD Summary Hospital Course Date Patient Seen: 03/25/24 Diagnoses: Intrauterine at 38w5d AMA Anhydramnios GBS negative RH positive Hospital Course: The pt presented for IOL due to anhydramnios on BPP obtained for decreased movement. She received cervidil for induction. She then was able to increase her contractions with nipple stimulation. AROM was performed with clear fluid present. She progressed to complete and had an of a viable baby boy without complications. There were no lacerations. , there were no complications. At the time of discharge she was voiding, ambulating, and passing flatus without difficulty. Her lochia was decreasing appropriately. Her pain was well controlled. She was with good latch. She will f/u in 6 weeks for check. Peripartum Data Delivery Method: Natural Vaginal Laceration Description: None Episiotomy description: None Procedures: Spontaneous vaginal delivery complications: none 1: Gender: Male Disposition of : home Time Spent with Patient Time attestation: Total time spent providing and/or coordinating discharge services: Objective Labs 03/24/24 10:49 Exam Narrative Exam Narrative: Gen: NAD, sitting comfortably in bed, appears well CV: RRR, no murmurs Resp: clear to auscultation bilaterally Abd: soft, appropriately tender, fundus firm and below the umbilicus, nondistended Ext: no edema Discharge Plan Discharge Plan Patient Disposition: Home Discharge orders & Medications Prescriptions: New acetaminophen 325 mg Tablet 650 mg PO Q6HR PRN (Reason: Pain, Mild (1-3)) Qty: 30 0RF docusate sodium 100 mg Capsule 100 mg PO DAILY Qty: 30 0RF ibuprofen 600 mg Tablet 600 mg PO Q6HR PRN (Reason: Pain, Mild (1-3)) Qty: 60 0RF oxycodone 5 mg Tablet 5 mg PO Q4HR PRN (Reason: Pain, Moderate (4-6)) Qty: 5 0RF Continued (DME) Double Electric Breast Pump and Supplies See Rx Instructions .ROUTE .MEDSUPPLY Qty: 1 0RF Rx Instructions: As directed vit-ferrous sulfat-FA 27 mg iron- 0.8 mg tablet 1 tab PO DAILY Advanced Probiotic 625 mg (10 billion cell) capsule 1 cap PO DAILY Follow up/Referrals: Daysi Shen MD [Physician] - 6 Weeks Indu Bernardo MD [Primary Care Provider] - Diet/Activity/Treatments Diet: Diet as Tolerated and Regular Skin/Wound/Dressing Care Report to your healthcare provider any signs of infection, such as:: chills, fever, increased pain and unusual drainage Visit Report/Discharge Packet Stand Alone Forms: Patient Portal/API, Stroke Signs & Symptoms Discharge Data Primary Care Provider: Indu Bernardo
[2024-03-25 17:59] VITALS: BP 118/81
== END 2024-03-25 18:45 | disposition home or self-care (01) | DRG 560 ==
PROVIDERS: Admitting Provider Family Medicine; Family Provider Family Medicine; PCP Family Medicine; Referring Provider Nurse Practitioner Obstetrics & Gynecology; Visit Provider Nurse Practitioner Obstetrics & Gynecology
DX: O41.03X0 Oligohydramnios, third trimester, not applicable or unspecified (principal); Z3A.38 38 weeks gestation of pregnancy; Z37.0 Single live birth
CPT/HCPCS: 36415; 59050; 59409; 76815; 76819; 85025; 86850; 86900; 86901; G0379

== ENCOUNTER 2024-07-13 09:45 | Outpatient (RCR) | payer OTHER, MEDICAID, SELFPAY ==
--- NOTE | 2024-05-31 12:45 | PT.OIE ---
Current Diagnoses Other specified disorders of muscle (05/31/24) Pelvic muscle wasting (05/31/24) Supervision of elderly multigravida, first trimester (05/31/24) Other specified related conditions, unspecified trimester (05/31/24) Unspecified abdominal pain (05/31/24) Weakness (05/31/24) Encounter for supervision of other normal , unspecified trimester (05/31/24) Past Medical History (Last Reviewed 09/13/23 @ 12:48 by Daysi Shen MD) Abdominal tumor Breast abscess renal anomaly LGA (large for gestational age) fetus Long COVID Past Surgical History (Last Reviewed 09/13/23 @ 12:48 by Daysi Shen MD) H/O abdominal surgery History of tonsillectomy (~1982) Visit Care Team Role Provider Type Indu Bernardo MD Family Provider Physician Primary Care Provider Specialty: [facility] Address: [address] [place] [address], [facility] [place], [address] Email: [email or web address] Daysi Shen MD Attending Provider Physician Referring Provider Specialty: [facility] Address: [address] [place] [address], [place], [address] Email: [email or web address] Physical Therapy Initial Evaluation PT-OP-A Visit Information Start: 05/31/24 09:46 Freq: Status: Active Protocol: Document 05/31/24 09:48 [facility] (Rec: 05/31/24 10:31 [facility] [id number]) Out-Patient Physical Therapy Visit Information Visit Information Visit Type Initial Evaluation Visit Start Time 09:50 Visit Stop Time 10:30 Visit Number 1 PT-OP-B Current Condition Start: 05/31/24 09:46 Freq: Status: Active Protocol: Document 05/31/24 09:48 [facility] (Rec: 05/31/24 10:31 [facility] [id number]) Current Condition History of Current Condition Onset Date with delivery date of 03-24-24 Current Complaints core weakness, urinary stress incontinence with daily activity History of Current Condition 9 weeks baby was positioned on her inferior vena cava and her heart rate was going up quickly so she couldn't do much at the end of her , no tearing. She is walking 20 minutes a day At the 6 week appt she was told she has a small diastasis . She reports feeling overall core weakness and is leaking appprox 5 times per day. She wears a pad and changes it for night time. Treatment Goals Patient/Caregiver Goals Goals include improving core strength post PT-OP-C Subjective Start: 05/31/24 09:46 Freq: Status: Active Protocol: Document 05/31/24 09:45 [facility] (Rec: 06/07/24 12:26 [facility] [id number]) Patient Questionnaires Pelvic Pain and Urgency/Frequency Patient Symptom Scale Pelvic Pain Score 9 PT-OP-I Pelvic Floor Start: 05/31/24 12:59 Freq: Status: Active Protocol: Document 05/31/24 12:59 [facility] (Rec: 05/31/24 13:01 [facility] [id number]) Pelvic Floor Assessment Urine Pelvic Floor Surgery No: s/p 4th vaginal delivery Other Urinary Symptoms stress incontinence Leakage Size Small Other Leakage Causes light activity, housework Leaks Per Day 5 Nocturia 4 Pelvic Clock Pelvic Clock 12-3 Atrophy Pelvic Clock 3-6 Atrophy Pelvic Clock 6-9 Atrophy Pelvic Clock 9-12 Atrophy Contraction Ability Voluntary Contraction Weak Manual Muscle Testing Left 2 Manual Muscle Testing Right 2 Manual Muscle Testing Anterior 1 Manual Muscle Testing Posterior 2 Muscle Endurance (Seconds) 4 Comments Pelvic Floor Comments pelvic floor weakness and decreased endurance of the pelvic floor PT-OP-M Strength Start: 05/31/24 09:46 Freq: Status: Active Protocol: Document 05/31/24 09:45 [facility] (Rec: 06/07/24 12:29 [facility] [id number]) Trunk Strength Trunk Manual Muscle Testing Testing Position Supine Flexion 3 Fair Core Stabilization Decreased TA stabilization Comments pt was checked for diastasis and she only has a small portion distal to umbilicus that there is a small 2 finger width gap but no bulging present PT-OP-Q Treatments Start: 05/31/24 09:46 Freq: Status: Active Protocol: Document 05/31/24 09:48 [facility] (Rec: 05/31/24 10:31 [facility] [id number]) Therapeutic Exercises Supine Exercises pelvic floor long holds Reps/Minutes 10 reps holding 10 seconds with EMG biofeedback Comments pt to work on 5-10 reps at home heel slides with TA Reps/Minutes x 10 rep s TA with marchj Reps/Minutes x 10 Manual Therapy Treatment Consent Patient gave verbal consent for manual Yes treatment Manual Techniques pelvic floor evaluation Comments pt consented to pelvic floor evaluation post . She is able to facilitate a contraction in all kaye of the levator ani but is weak and especially in the anterior pelvic floor testing 1/5 MMT and 2/5MMT for lateral and posterior kaye PT-OP-T Assessment and Plan Start: 05/31/24 09:46 Freq: Status: Active Protocol: Document 05/31/24 09:45 [facility] (Rec: 06/07/24 12:39 [facility] [id number]) Physical Therapy Assessment Rehab Potential Rehabilitation Potential Excellent Evaluation Complexity Number of Personal Factors/Comorbidities 0 Number of Body Systems Impaired 1-2 Clinical Presentation at Evaluation Stable Impairments Impairments Functional Activities,Soft Tissue Mobility,Strength Other Impairments urinary leakage and nocturia Goals 3 Impairment Decreased endurance of the pelvic floor Short Term Goal (STG) Yessy is able to sustain a pelvic floor contraction x 10 seconds in supine STG Duration 4 weeks Optometric Technologist Goal (LTG) Yessy is able to sustain a pelvic floor contraction in standing x 5 seconds LTG Duration 8 weeks 2 Impairment pelvic floor weakness with symptoms of urinary stress incontinence happening approximately 5 times per day with light activity Chcf Goal (LTG) Yessy reports a overall reduction in urinary stress incontinence with pelvic floor strength training LTG Duration 8 weeks One Impairment post core weakness after 4th vaginal delivery Optometric Technologist Goal (LTG) Anika is educated on a home core stabilization and body mechanics program and she feels independent with this program LTG Duration 8 weeks Assessment Summary Assessment Yessy is a 43 year old female who is referred to PT for post core strengthening. She gave to her 4th child on 03-24-24. She notes overall feeling of core weakness and reports symptoms of urinary leakage approx 5 times per day with daily activity. Anika notes she wasn't able to be as active towards the end of her last due to the babies position on her inferior vena cava so she feels much weaker now than she did after her other deliveries. Her goals include improving core strength and decreasing urinary stress incontinence. With evaluation today Yessy presents with weakness and decreased endurance of all kaye of the levator ani. She is able to activate her Transverse abdominal muscles but she is weak and has decreased stabilization from her core. She is a good candidate for PT. Physical Therapy Plan Frequency and Duration Frequency of Treatment 1x/Week Duration of treatment (weeks) 8 Plan of Care Start Date 05/31/24 Plan of Care End Date 07/26/24 Therapeutic Interventions Therapeutic Interventions Home Exercise Program, Neuromuscular Re-education, Patient/Caregiver Education, Self-Care/Home Management, Therapeutic Exercises Modalities Biofeedback Next Visit Focus/Plan Next Note Type Treatment Note Next Visit Plan Begin EMG biofeedback for pelvic floor endurance training and strengthening, progress abdominal stabilization exercises
--- NOTE | 2024-05-31 12:46 | PT.OPPOC ---
Physical, Occupational & Speech Therapy At [facility] Current Diagnoses Other specified disorders of muscle (05/31/24) Pelvic muscle wasting (05/31/24) Supervision of elderly multigravida, first trimester (05/31/24) Other specified related conditions, unspecified trimester (05/31/24) Unspecified abdominal pain (05/31/24) Weakness (05/31/24) Encounter for supervision of other normal , unspecified trimester (05/31/24) Visit Care Team Role Provider Type Indu Bernardo MD Family Provider Physician Primary Care Provider Specialty: Family Practice Address: [address] [place] [address], [place], [address] Email: [email or web address] Daysi Shen MD Attending Provider Physician Referring Provider Specialty: [facility] Practice Address: [address] [place] [address], [address], [place], [address] Email: [email or web address] Plan Of Care PT-OP-B Current Condition Start: 05/31/24 09:46 Freq: Status: Active Protocol: Document 05/31/24 09:48 [facility] (Rec: 05/31/24 10:31 [facility] [id number]) Current Condition History of Current Condition Onset Date with delivery date of 03-24-24 Current Complaints core weakness, urinary stress incontinence with daily activity History of Current Condition 9 weeks baby was positioned on her inferior vena cava and her heart rate was going up quickly so she couldn't do much at the end of her , no tearing. She is walking 20 minutes a day At the 6 week appt she was told she has a small diastasis . She reports feeling overall core weakness and is leaking appprox 5 times per day. She wears a pad and changes it for night time. Treatment Goals Patient/Caregiver Goals Goals include improving core strength post PT-OP-T Assessment and Plan Start: 05/31/24 09:46 Freq: Status: Active Protocol: Document 05/31/24 09:45 [facility] (Rec: 06/07/24 12:39 [facility] [id number]) Physical Therapy Assessment Rehab Potential Rehabilitation Potential Excellent Evaluation Complexity Number of Personal Factors/Comorbidities 0 Number of Body Systems Impaired 1-2 Clinical Presentation at Evaluation Stable Impairments Impairments Functional Activities,Soft Tissue Mobility,Strength Other Impairments urinary leakage and nocturia Goals 3 Impairment Decreased endurance of the pelvic floor Short Term Goal (STG) Yessy is able to sustain a pelvic floor contraction x 10 seconds in supine STG Duration 4 weeks Halfway Goal (LTG) Yessy is able to sustain a pelvic floor contraction in standing x 5 seconds LTG Duration 8 weeks 2 Impairment pelvic floor weakness with symptoms of urinary stress incontinence happening approximately 5 times per day with light activity Cytotechnologist Supervisor Goal (LTG) Yessy reports a overall reduction in urinary stress incontinence with pelvic floor strength training LTG Duration 8 weeks One Impairment post core weakness after 4th vaginal delivery Halfway Goal (LTG) Yessy is educated on a home core stabilization and body mechanics program and she feels independent with this program LTG Duration 8 weeks Assessment Summary Assessment Yessy is a 43 year old female who is referred to PT for post core strengthening. She gave to her 4th child on 03-24-24. She notes overall feeling of core weakness and reports symptoms of urinary leakage approx 5 times per day with daily activity. Yessy notes she wasn't able to be as active towards the end of her last due to the babies position on her inferior vena cava so she feels much weaker now than she did after her other deliveries. Her goals include improving core strength and decreasing urinary stress incontinence. With evaluation today Yessy presents with weakness and decreased endurance of all kaye of the levator ani. She is able to activate her Transverse abdominal muscles but she is weak and has decreased stabilization from her core. She is a good candidate for PT. Physical Therapy Plan Frequency and Duration Frequency of Treatment 1x/Week Duration of treatment (weeks) 8 Plan of Care Start Date 05/31/24 Plan of Care End Date 07/26/24 Therapeutic Interventions Therapeutic Interventions Home Exercise Program, Neuromuscular Re-education, Patient/Caregiver Education, Self-Care/Home Management, Therapeutic Exercises Modalities Biofeedback Next Visit Focus/Plan Next Note Type Treatment Note Next Visit Plan Begin EMG biofeedback for pelvic floor endurance training and strengthening, progress abdominal stabilization exercises Plan of Care Dates Plan of Care Start Date 05/31/24 Plan of Care End Date 07/26/24 Electronically Signed by: Adina Edmonds, PT 06/07/24 1246 If you are in agreement with this Plan of Care, please return a signed and dated copy. I have reviewed this Plan of Care and certify that the skilled therapy services above are required to meet the patient?s needs. Physician Signature Date Printed Name and Credentials Clinical Instructor Signature Printed Name and Credentials
--- NOTE | 2024-06-08 17:10 | PT.OTN ---
Current Diagnoses Other specified disorders of muscle (06/08/24) Pelvic muscle wasting (06/08/24) Supervision of elderly multigravida, first trimester (06/08/24) Other specified related conditions, unspecified trimester (06/08/24) Unspecified abdominal pain (06/08/24) Weakness (06/08/24) Encounter for supervision of other normal , unspecified trimester (06/08/24) Physical Therapy Treatment Note PT-OP-A Visit Information Start: 05/31/24 09:46 Freq: Status: Active Protocol: Document 06/08/24 08:12 [facility] (Rec: 06/08/24 08:59 [facility] [id number]) Out-Patient Physical Therapy Visit Information Visit Information Visit Type Treatment Note Visit Start Time 08:15 Visit Stop Time 09:00 Visit Number 2 Evaluation Information Evaluation Date 05/31/24 PT-OP-B Current Condition Start: 05/31/24 09:46 Freq: Status: Active Protocol: Document 05/31/24 09:48 [facility] (Rec: 05/31/24 10:31 [facility] [id number]) Current Condition History of Current Condition Onset Date with delivery date of 03-24-24 Current Complaints core weakness, urinary stress incontinence with daily activity History of Current Condition 9 weeks baby was positioned on her inferior vena cava and her heart rate was going up quickly so she couldn't do much at the end of her , no tearing. She is walking 20 minutes a day At the 6 week appt she was told she has a small diastasis . She reports feeling overall core weakness and is leaking appprox 5 times per day. She wears a pad and changes it for night time. Treatment Goals Patient/Caregiver Goals Goals include improving core strength post PT-OP-C Subjective Start: 05/31/24 09:46 Freq: Status: Active Protocol: Document 06/08/24 17:07 [facility] (Rec: 06/08/24 17:08 [facility] [id number]) OP-PT Subjective Patient Comments Patient Comments Yessy reports she has been doing her exercises when she can she also tried doing some yoga PT-OP-I Pelvic Floor Start: 05/31/24 12:59 Freq: Status: Active Protocol: Document 05/31/24 12:59 [facility] (Rec: 05/31/24 13:01 [facility] [id number]) Pelvic Floor Assessment Urine Pelvic Floor Surgery No: s/p 4th vaginal delivery Other Urinary Symptoms stress incontinence Leakage Size Small Other Leakage Causes light activity, housework Leaks Per Day 5 Nocturia 4 Pelvic Clock Pelvic Clock 12-3 Atrophy Pelvic Clock 3-6 Atrophy Pelvic Clock 6-9 Atrophy Pelvic Clock 9-12 Atrophy Contraction Ability Voluntary Contraction Weak Manual Muscle Testing Left 2 Manual Muscle Testing Right 2 Manual Muscle Testing Anterior 1 Manual Muscle Testing Posterior 2 Muscle Endurance (Seconds) 4 Comments Pelvic Floor Comments pelvic floor weakness and decreased endurance of the pelvic floor PT-OP-M Strength Start: 05/31/24 09:46 Freq: Status: Active Protocol: Document 05/31/24 09:45 [facility] (Rec: 06/07/24 12:29 [facility] [id number]) Trunk Strength Trunk Manual Muscle Testing Testing Position Supine Flexion 3 Fair Core Stabilization Decreased TA stabilization Comments pt was checked for diastasis and she only has a small portion distal to umbilicus that there is a small 2 finger width gap but no bulging present PT-OP-Q Treatments Start: 05/31/24 09:46 Freq: Status: Active Protocol: Document 06/08/24 08:12 [facility] (Rec: 06/08/24 08:59 [facility] [id number]) Therapeutic Exercises Supine Exercises templates for eccentric control and coordination Reps/Minutes x 2 reps of elevator exercise bridges with hip abduction Reps/Minutes x 5 reps bridge with ball squeeze Reps/Minutes 10 reps pelvic floor long holds Equipment Used average 5.9 and max of 27.1 uv Reps/Minutes 10 reps holding 10 seconds with EMG biofeedback Comments pt to work on 5-10 reps at home heel slides with TA Reps/Minutes x 10 rep s TA with marchj Reps/Minutes x 10 Other Exercises quadruped cat cow Reps/Minutes 10 reps quadruped TA Reps/Minutes 10 reps PT-OP-T Assessment and Plan Start: 05/31/24 09:46 Freq: Status: Active Protocol: Document 06/08/24 08:12 [facility] (Rec: 06/08/24 08:59 [facility] [id number]) Physical Therapy Assessment Goals 3 Impairment Decreased endurance of the pelvic floor Short Term Goal (STG) Yessy is able to sustain a pelvic floor contraction x 10 seconds in supine STG Duration 4 weeks Water Pipe Installer Goal (LTG) Yessy is able to sustain a pelvic floor contraction in standing x 5 seconds LTG Duration 8 weeks 2 Impairment pelvic floor weakness with symptoms of urinary stress incontinence happening approximately 5 times per day with light activity Halfway Goal (LTG) Yessy reports a overall reduction in urinary stress incontinence with pelvic floor strength training LTG Duration 8 weeks One Impairment post core weakness after 4th vaginal delivery Water Pipe Installer Goal (LTG) Anika is educated on a home core stabilization and body mechanics program and she feels independent with this program LTG Duration 8 weeks Assessment Summary Assessment We worked on EMG biofeedback for endurance training of the pelvic floor and I was able to increase lower abdominal progression to level 2 b. Endurance is difficult with the pelvic floor Anika would benefit from continued endurance training to decrease c/o urinary leakage Physical Therapy Plan Frequency and Duration Frequency of Treatment 1x/Week Duration of treatment (weeks) 8 Plan of Care Start Date 05/31/24 Plan of Care End Date 07/26/24 Next Visit Focus/Plan Next Note Type Treatment Note Next Visit Plan review new TA stabilization exercises and begin working on lateral hip stabilization
--- NOTE | 2024-06-15 16:22 | PT.OTN ---
Current Diagnoses Other specified disorders of muscle (06/15/24) Pelvic muscle wasting (06/15/24) Supervision of elderly multigravida, first trimester (06/15/24) Other specified related conditions, unspecified trimester (06/15/24) Unspecified abdominal pain (06/15/24) Weakness (06/15/24) Encounter for supervision of other normal , unspecified trimester (06/15/24) Physical Therapy Treatment Note PT-OP-A Visit Information Start: 05/31/24 09:46 Freq: Status: Active Protocol: Document 06/15/24 09:10 [facility] (Rec: 06/15/24 09:43 [facility] [id number]) Out-Patient Physical Therapy Visit Information Visit Information Visit Type Treatment Note Visit Start Time 09:05 Visit Stop Time 09:45 Visit Number 3 PT-OP-B Current Condition Start: 05/31/24 09:46 Freq: Status: Active Protocol: Document 05/31/24 09:48 [facility] (Rec: 05/31/24 10:31 [facility] [id number]) Current Condition History of Current Condition Onset Date with delivery date of 03-24-24 Current Complaints core weakness, urinary stress incontinence with daily activity History of Current Condition 9 weeks baby was positioned on her inferior vena cava and her heart rate was going up quickly so she couldn't do much at the end of her , no tearing. She is walking 20 minutes a day At the 6 week appt she was told she has a small diastasis . She reports feeling overall core weakness and is leaking appprox 5 times per day. She wears a pad and changes it for night time. Treatment Goals Patient/Caregiver Goals Goals include improving core strength post PT-OP-C Subjective Start: 05/31/24 09:46 Freq: Status: Active Protocol: Document 06/15/24 09:10 [facility] (Rec: 06/15/24 09:43 [facility] [id number]) OP-PT Subjective Patient Comments Patient Comments pt has questions about voiding often PT-OP-I Pelvic Floor Start: 05/31/24 12:59 Freq: Status: Active Protocol: Document 05/31/24 12:59 [facility] (Rec: 05/31/24 13:01 [facility] [id number]) Pelvic Floor Assessment Urine Pelvic Floor Surgery No: s/p 4th vaginal delivery Other Urinary Symptoms stress incontinence Leakage Size Small Other Leakage Causes light activity, housework Leaks Per Day 5 Nocturia 4 Pelvic Clock Pelvic Clock 12-3 Atrophy Pelvic Clock 3-6 Atrophy Pelvic Clock 6-9 Atrophy Pelvic Clock 9-12 Atrophy Contraction Ability Voluntary Contraction Weak Manual Muscle Testing Left 2 Manual Muscle Testing Right 2 Manual Muscle Testing Anterior 1 Manual Muscle Testing Posterior 2 Muscle Endurance (Seconds) 4 Comments Pelvic Floor Comments pelvic floor weakness and decreased endurance of the pelvic floor PT-OP-M Strength Start: 05/31/24 09:46 Freq: Status: Active Protocol: Document 05/31/24 09:45 [facility] (Rec: 06/07/24 12:29 [facility] [id number]) Trunk Strength Trunk Manual Muscle Testing Testing Position Supine Flexion 3 Fair Core Stabilization Decreased TA stabilization Comments pt was checked for diastasis and she only has a small portion distal to umbilicus that there is a small 2 finger width gap but no bulging present PT-OP-Q Treatments Start: 05/31/24 09:46 Freq: Status: Active Protocol: Document 06/15/24 09:10 [facility] (Rec: 06/15/24 09:43 [facility] [id number]) Therapeutic Exercises Supine Exercises pelvic floor long holds Supine Exercise Name likes azria pose Comments average 4.9 and max of 15 Other Exercises wall slides Reps/Minutes x 10 reps zaria pose Reps/Minutes hold 1-2 min thoracic rotation Reps/Minutes x 10 reps sidebends Reps/Minutes 10 reps Self-Care/Home Management Treatment Education Patient Education Home Exercise Program Other Education urge deference technique and bladder retraining PT-OP-T Assessment and Plan Start: 05/31/24 09:46 Freq: Status: Active Protocol: Document 06/15/24 16:17 [facility] (Rec: 06/15/24 16:21 [facility] [id number]) Physical Therapy Assessment Assessment Summary Assessment Yessy is doing well with LA stabilization I did try to progress to level 1 b and this was too much so we kept with lloyd. She would benefit from continued pelvic floor work too as endurance is difficult. I did give her the urge deference technique today as she was afraid of getting into the habit of voiding just in case Physical Therapy Plan Frequency and Duration Frequency of Treatment 1x/Week Duration of treatment (weeks) 8 Plan of Care Start Date 05/31/24 Plan of Care End Date 07/26/24 Therapeutic Interventions Therapeutic Interventions Home Exercise Program, Neuromuscular Re-education, Patient/Caregiver Education, Self-Care/Home Management, Therapeutic Exercises Modalities Biofeedback Next Visit Focus/Plan Next Note Type Treatment Note Next Visit Plan review urge deference technique next visit and continue with core stabilization
--- NOTE | 2024-06-28 13:17 | PT.OTN ---
Current Diagnoses Other specified disorders of muscle (06/28/24) Pelvic muscle wasting (06/28/24) Supervision of elderly multigravida, first trimester (06/28/24) Other specified related conditions, unspecified trimester (06/28/24) Unspecified abdominal pain (06/28/24) Weakness (06/28/24) Encounter for supervision of other normal , unspecified trimester (06/28/24) Physical Therapy Treatment Note PT-OP-A Visit Information Start: 05/31/24 09:46 Freq: Status: Active Protocol: Document 06/28/24 09:00 [facility] (Rec: 06/28/24 13:16 [facility] [id number]) Out-Patient Physical Therapy Visit Information Visit Information Visit Type Treatment Note Visit Start Time 09:00 Visit Stop Time 09:45 Visit Number 4 PT-OP-B Current Condition Start: 05/31/24 09:46 Freq: Status: Active Protocol: Document 05/31/24 09:48 [facility] (Rec: 05/31/24 10:31 [facility] [id number]) Current Condition History of Current Condition Onset Date with delivery date of 03-24-24 Current Complaints core weakness, urinary stress incontinence with daily activity History of Current Condition 9 weeks baby was positioned on her inferior vena cava and her heart rate was going up quickly so she couldn't do much at the end of her , no tearing. She is walking 20 minutes a day At the 6 week appt she was told she has a small diastasis . She reports feeling overall core weakness and is leaking appprox 5 times per day. She wears a pad and changes it for night time. Treatment Goals Patient/Caregiver Goals Goals include improving core strength post PT-OP-C Subjective Start: 05/31/24 09:46 Freq: Status: Active Protocol: Document 06/28/24 09:05 [facility] (Rec: 06/28/24 09:48 [facility] [id number]) OP-PT Subjective Patient Comments Patient Comments pt notes she feels like there is less leakage she still feels like she needs to go frequently, she still feels the upper rib cage region PT-OP-I Pelvic Floor Start: 05/31/24 12:59 Freq: Status: Active Protocol: Document 05/31/24 12:59 [facility] (Rec: 05/31/24 13:01 [facility] [id number]) Pelvic Floor Assessment Urine Pelvic Floor Surgery No: s/p 4th vaginal delivery Other Urinary Symptoms stress incontinence Leakage Size Small Other Leakage Causes light activity, housework Leaks Per Day 5 Nocturia 4 Pelvic Clock Pelvic Clock 12-3 Atrophy Pelvic Clock 3-6 Atrophy Pelvic Clock 6-9 Atrophy Pelvic Clock 9-12 Atrophy Contraction Ability Voluntary Contraction Weak Manual Muscle Testing Left 2 Manual Muscle Testing Right 2 Manual Muscle Testing Anterior 1 Manual Muscle Testing Posterior 2 Muscle Endurance (Seconds) 4 Comments Pelvic Floor Comments pelvic floor weakness and decreased endurance of the pelvic floor PT-OP-M Strength Start: 05/31/24 09:46 Freq: Status: Active Protocol: Document 05/31/24 09:45 [facility] (Rec: 06/07/24 12:29 [facility] [id number]) Trunk Strength Trunk Manual Muscle Testing Testing Position Supine Flexion 3 Fair Core Stabilization Decreased TA stabilization Comments pt was checked for diastasis and she only has a small portion distal to umbilicus that there is a small 2 finger width gap but no bulging present PT-OP-Q Treatments Start: 05/31/24 09:46 Freq: Status: Active Protocol: Document 06/28/24 09:05 [facility] (Rec: 06/28/24 09:48 [facility] [id number]) Therapeutic Exercises Supine Exercises TA with marchj Reps/Minutes x 10 Prone Exercises arm lifts in prone Reps/Minutes x 20 reps thoracic extensions Reps/Minutes x 20 Other Exercises quadruped opp arm and opp leg lifts Reps/Minutes x 10 each wall slides Reps/Minutes x 10 reps zaria pose Reps/Minutes hold 1-2 min thoracic rotation Reps/Minutes x 10 reps sidebends Reps/Minutes 10 reps quadruped cat cow Reps/Minutes 10 reps quadruped TA Reps/Minutes 10 reps PT-OP-T Assessment and Plan Start: 05/31/24 09:46 Freq: Status: Active Protocol: Document 06/28/24 09:00 [facility] (Rec: 06/28/24 13:16 [facility] [id number]) Physical Therapy Assessment Assessment Summary Assessment I worked today with thoracic extension exercises as Yessy is feeling thightness in her thoracic spine, we added on with TA stabilization in quadrureped as well and she tolerated this well Physical Therapy Plan Frequency and Duration Frequency of Treatment 1x/Week Duration of treatment (weeks) 8 Plan of Care Start Date 05/31/24 Plan of Care End Date 07/26/24 Therapeutic Interventions Therapeutic Interventions Home Exercise Program, Neuromuscular Re-education, Patient/Caregiver Education, Self-Care/Home Management, Therapeutic Exercises Modalities Biofeedback Next Visit Focus/Plan Next Note Type Treatment Note Next Visit Plan review all extablished exercises next visit as this will be Candaces last PT visit
--- NOTE | 2024-07-13 13:10 | PT.OTN ---
Current Diagnoses Other specified disorders of muscle (07/13/24) Pelvic muscle wasting (07/13/24) Supervision of elderly multigravida, first trimester (07/13/24) Other specified related conditions, unspecified trimester (07/13/24) Unspecified abdominal pain (07/13/24) Weakness (07/13/24) Encounter for supervision of other normal , unspecified trimester (07/13/24) Physical Therapy Treatment Note PT-OP-A Visit Information Start: 05/31/24 09:46 Freq: Status: Active Protocol: Document 07/13/24 09:50 [facility] (Rec: 07/13/24 10:35 [facility] [id number]) Out-Patient Physical Therapy Visit Information Visit Information Visit Type Treatment Note Visit Start Time 09:50 Visit Stop Time 10:30 Visit Number 5 PT-OP-B Current Condition Start: 05/31/24 09:46 Freq: Status: Active Protocol: Document 05/31/24 09:48 [facility] (Rec: 05/31/24 10:31 [facility] [id number]) Current Condition History of Current Condition Onset Date with delivery date of 03-24-24 Current Complaints core weakness, urinary stress incontinence with daily activity History of Current Condition 9 weeks baby was positioned on her inferior vena cava and her heart rate was going up quickly so she couldn't do much at the end of her , no tearing. She is walking 20 minutes a day At the 6 week appt she was told she has a small diastasis . She reports feeling overall core weakness and is leaking appprox 5 times per day. She wears a pad and changes it for night time. Treatment Goals Patient/Caregiver Goals Goals include improving core strength post PT-OP-C Subjective Start: 05/31/24 09:46 Freq: Status: Active Protocol: Document 07/13/24 09:50 [facility] (Rec: 07/13/24 10:35 [facility] [id number]) OP-PT Subjective Patient Comments Patient Comments Yessy reports she returned home from a long road trip to the [facility] and has had some left sided muscular pain. This did start intermittently prior to her trip and she thought maybe it was a bladder infection. She did seek medical consult and urine tests came back negative PT-OP-I Pelvic Floor Start: 05/31/24 12:59 Freq: Status: Active Protocol: Document 05/31/24 12:59 [facility] (Rec: 05/31/24 13:01 [facility] [id number]) Pelvic Floor Assessment Urine Pelvic Floor Surgery No: s/p 4th vaginal delivery Other Urinary Symptoms stress incontinence Leakage Size Small Other Leakage Causes light activity, housework Leaks Per Day 5 Nocturia 4 Pelvic Clock Pelvic Clock 12-3 Atrophy Pelvic Clock 3-6 Atrophy Pelvic Clock 6-9 Atrophy Pelvic Clock 9-12 Atrophy Contraction Ability Voluntary Contraction Weak Manual Muscle Testing Left 2 Manual Muscle Testing Right 2 Manual Muscle Testing Anterior 1 Manual Muscle Testing Posterior 2 Muscle Endurance (Seconds) 4 Comments Pelvic Floor Comments pelvic floor weakness and decreased endurance of the pelvic floor PT-OP-M Strength Start: 05/31/24 09:46 Freq: Status: Active Protocol: Document 05/31/24 09:45 [facility] (Rec: 06/07/24 12:29 [facility] [id number]) Trunk Strength Trunk Manual Muscle Testing Testing Position Supine Flexion 3 Fair Core Stabilization Decreased TA stabilization Comments pt was checked for diastasis and she only has a small portion distal to umbilicus that there is a small 2 finger width gap but no bulging present PT-OP-Q Treatments Start: 05/31/24 09:46 Freq: Status: Active Protocol: Document 07/13/24 13:01 [facility] (Rec: 07/13/24 13:08 [facility] [id number]) Manual Therapy Treatment Soft Tissue Mobilization left QL and paraspinal MFR Body Location left QL and paraspinals Mobilization Type Myofascial Release Intensity/Depth Moderate Body Position Sidelying Joint Mobilizations left side long axis distraction Joint LE LE Direction long axis distraction Body Position Supine MET for left posterior rotation Joint left posterior innominant rotation Body Position Hooklying Reps/Duration x 5 reps PT-OP-T Assessment and Plan Start: 05/31/24 09:46 Freq: Status: Active Protocol: Document 07/13/24 13:01 [facility] (Rec: 07/13/24 13:08 [facility] [id number]) Physical Therapy Assessment Goals 3 Impairment Decreased endurance of the pelvic floor Short Term Goal (STG) Yessy is able to sustain a pelvic floor contraction x 10 seconds in supine 07/13/24 excellent progress STG Duration 4 weeks Buggy Operator Goal (LTG) Yessy is able to sustain a pelvic floor contraction in standing x 5 seconds some progress and Yessy will continue to work on core bracing in upright positions and prior to lifting LTG Duration 8 weeks 2 Impairment pelvic floor weakness with symptoms of urinary stress incontinence happening approximately 5 times per day with light activity Jail Goal (LTG) Yessy reports a overall reduction in urinary stress incontinence with pelvic floor strength training Good progress LTG Duration 8 weeks One Impairment post core weakness after 4th vaginal delivery Jail Goal (LTG) Anika is educated on a home core stabilization and body mechanics program and she feels independent with this program goal met LTG Duration 8 weeks Assessment Summary Assessment This was Yessy's last PT appt. She had recently returned from a long car trip to the [facility] and notes she didn't sleep much with baby and traveling. She has been experiencing a newer onset of left sided posterior pain in the region of the QL. We reviewed body mechanics for lifting baby and car seat and time was spent on manual therapy techniques for her pelvis. She was rotated in her left innominant and there was guarding and tightness in the left parspinals and QL. Yessy is doing well with her home program and she will continue doing her exercises at home. SHe is feeling stronger in her pelvic floor and core overall. At this time she will be discharged to a HEP. If she feels she needs further treatment for her low back and SI I would be happy to see her again for that. Physical Therapy Plan Discharge Physical Therapy Discharge Reasons No Longer Attending PT Discharge Comments Pt has met her HEP goals and she will continue to work on core strengthening at home.
== END 2024-07-18 13:56 | disposition home or self-care (01) ==
LOC: PHYS 09:45
PROVIDERS: Family Provider Family Medicine; PCP Family Medicine; Referring Provider Family Medicine; Visit Provider Family Medicine
DX: O26.899 Other specified pregnancy related conditions, unspecified trimester (principal); R10.9 Unspecified abdominal pain; O09.521 Supervision of elderly multigravida, first trimester; M62.89 Other specified disorders of muscle; N81.84 Pelvic muscle wasting; R53.1 Weakness
CPT/HCPCS: 97110; 97140; 97161; 97535